=== PATIENT | female | born 1965 | race African-American/Black ===

== ENCOUNTER 2017-01-24 18:45 | Emergency (ER) | payer MEDICAID ==
[~2017-01-24 18:45] MED LIST: IBUP-232 PO
[2017-01-24 18:49] VITALS: BP 183/119; PULSE 80; RESP 20; TEMP 98.8; O2SAT 98
== END 2017-01-24 19:32 | disposition left against medical advice (07) ==
LOC: NED 18:45
DX: M25.569 Pain in unspecified knee (principal); Z53.21 Procedure and treatment not carried out due to patient leaving prior to being seen by health care provider
CPT/HCPCS: 99281

== ENCOUNTER 2017-08-09 07:20 | Emergency (ER) | payer OTHER, MEDICAID ==
[~2017-08-09] VITALS: Ht 177.8 cm; Wt 100.0 kg
[2017-08-09 07:22] VITALS: BP 167/112; PULSE 76; RESP 14; TEMP 99.1; O2SAT 100
[2017-08-09] MEDS ORDERED: LOSA25TA PO (07:28)
[2017-08-09] MEDS ORDERED: AMLO1TAB97 PO (07:28)
--- NOTE | 2017-08-09 08:24 | PD ---
HPI Chief Complaint: Cold / Flu Symptoms Time Seen by Provider: 07:47 Travel History International Travel<30 days: No Contact w/Intl Traveler<30days: No Traveled to known affect area: No History of Present Illness HPI 51-year-old female presents to the emergency Department with complaint of cough , nasal congestion, sore throat since yesterday. Has history of asthma and reports shortness of breath, chest tightness, wheezing. Reports stabbing chest pain with coughing only. Otherwise denies chest pain while at rest. Then using albuterol nebulizer with good relief of symptoms. Denies fever, vomiting , diarrhea, abdominal pain. has similar symptoms. Has taken cough drops, drinking tea, and uses nebulizer for symptom management. No known relieving or aggravating factors. Symptoms are mild in severity. No PCP. No known allergies. History of asthma. Has no medical complaints. No other modifying factors or associated signs and symptoms. PFSH Past Medical History Cardiovascular Problems: Yes (HTN) Diabetes: Yes (diet controlled) Patient Takes Glucophage: No Hypertension: Yes Influenza Vaccination: Yes ?: Not Past Surgical History Abdominal Surgery: Yes (gastric sleeve 2017) Social History Alcohol Use: No Tobacco Use: Yes Substance Use: No Allergies-Medications (Allergen,Severity, Reaction): Coded Allergies: No Known Allergies (Unverified Adverse Reaction, Unknown, 08/09/17) Reported Meds & Prescriptions Reported Meds & Active Scripts Active Deltasone (Prednisone) 20 Mg Tab 40 Mg PO DAILY 4 Days start 08/10/2017 Reported Jcptxdzpru-Lvpscfdru-Oanmthkvjqrwqthqlvv 5-160-12.5 Mg Tab 1 Tab PO DAILY Losartan (Losartan Potassium) 25 Mg Tab Unknown Dose PO DAILY Review of Systems Except as stated in HPI: all other systems reviewed are Neg Physical Exam Narrative GENERAL: Well-nourished, well-developed black female patient, in no acute distress; afebrile, nontoxic-appearing SKIN: Warm and dry. HEAD: Atraumatic. Normocephalic. EYES: Pupils equal and round. No scleral icterus. No injection or drainage. ENT: Mucosa pink and moist. No erythema or exudates. No uvular edema. No uvular , palatal, or tonsillar deviation. Airway patent. Nares without nasal blood, purulent drainage or septal hematoma. EARS: Bilateral pinnae and external canals appear within normal limits. Bilateral tympanic membranes without erythema, dullness or perforation. NECK: Trachea midline. No lymphadenopathy. CARDIOVASCULAR: Regular rate and rhythm. No murmur appreciated. RESPIRATORY: No accessory muscle use. Lungs clear throughout with decreased lung sounds in bilateral bases. Breath sounds equal bilaterally. No retractions or tachypnea. No Audible wheezing noted. GASTROINTESTINAL: Abdomen soft, non-tender, nondistended. Hepatic and splenic margins not palpable. Bowel sounds are active 4 quadrants. MUSCULOSKELETAL: No obvious deformities. No clubbing. No cyanosis. No edema. NEUROLOGICAL: Awake and alert. Oriented 3. No obvious cranial nerve deficits. Motor grossly within normal limits. Normal speech. Moves all extremities. 5/5 strength to all extremities. PSYCHIATRIC: Appropriate mood and affect; insight and judgment normal. Data Data Last Documented VS Vital Signs Date Time Temp Pulse Resp B/P (MAP) Pulse Ox O2 Delivery O2 Flow Rate FiO2 08/09/17 07:22 99.1 76 14 167/112 (130) 100 Orders Orders Group A Rapid Strep Screen (08/09/17 07:48) Influenzae A/B Antigen (08/09/17 07:48) Strep Culture (Group A) (08/09/17 07:51) Prednisone (Deltasone) (08/09/17 08:30) Albuterol-Ipratropium Neb (Duoneb Neb) (08/09/17 08:30) Ed Discharge Order (08/09/17 08:53) [facility] Medical Decision Making Medical Screen Exam Complete: Yes Emergency Medical Condition: Yes Medical Record Reviewed: Yes Differential Diagnosis Viral illness, asthma exacerbation, strep pharyngitis, influenza Narrative Course 51-year-old female with cold/flu symptoms and asthma exacerbation. Patient is in no acute distress without retractions or tachypnea. Lungs are clear with decreased lung sounds in bilateral bases. She is afebrile and nontoxic- appearing. Denies fever, vomiting. Influenza, rapid strep, Deltasone, DuoNeb ordered. 0820: Influenza and rapid strep negative. Patient has been is positive for influenza A and I will provide the patient with a prescription for Tamiflu. On reexamination the patient reports improvement in symptoms and denies chest pain , shortness of breath. Lungs are clear and equal throughout with improved lung sounds in bilateral bases. Patient has albuterol nebulizers at home. Deltasone and Tamiflu prescribed for home. Instructed patient to follow up with primary care provider. Patient verbalizes understanding and agreement with treatment plan. Patient is medically cleared and stable for discharge. Discussed reasons to return to the emergency department. Patient agrees with treatment plan. The patients vital signs are stable and the patient is stable for outpatient follow-up and treatment. Patient discharged home, stable and in no acute distress. Diagnosis Primary Impression: Viral illness Additional Impressions: Asthma exacerbation Qualified Codes: J45.901 - Unspecified asthma with (acute) exacerbation Exposure to the flu Referrals: [facility] Primary Care Physician Patient Instructions: Cold Symptoms (ED), General Instructions, Safe Use of Cough and Cold Medicines (ED) Departure Forms: Tests/Procedures, Work Release Enter return to work date: Aug 11, 2017 Additional Instructions: Use Albuterol inhaler as prescribed Take oral steroids as prescribed and complete full course Gpbr-izj-kwjkbtd decongestants or antihistamines as directed and as needed for symptom management Your cough can last 4-6 weeks Drink plenty of fluids to prevent dehydration Use hot air humidifier to decrease cough exacerbation Turn off ceiling fans and sleep with head of bed elevated Avoid triggers such as second hand smoke, dust, known allergens Follow-up with your primary care provider Return to the emergency department immediately with worsening of symptoms Med/Other Pt SpecificInfo: Prescription(s) given Scripts Oseltamivir (Tamiflu) 75 Mg Cap 75 MG PO BID for Mgmt Viral Infection for 5 Days, #10 CAP 0 Refills Prov: Amanda OwensP 08/09/17 Prednisone (Deltasone) 20 Mg Tab 40 MG PO DAILY for 4 Days, #8 TAB 0 Refills start 08/10/2017 Prov: Amanda OwensP 08/09/17 Disposition: 01 DISCHARGE HOME Condition: Stable Amanda Owens Aug 09, 2017 08:24
[2017-08-09] MEDS ORDERED: PRED-503 PO (08:26)
[2017-08-09] MEDS ORDERED: RESP: ALBUTEROL 2.5 MG/IPRATROPIUM 0.5 MG NEB (SCH) INH ONE (08:30)
[2017-08-09] MEDS ORDERED: predniSONE 20 MG TAB PO ONE (08:30)
[2017-08-09 08:58] VITALS: BP 169/100; PULSE 70; RESP 16; TEMP 98.6; O2SAT 99
[2017-08-09] MEDS ORDERED: OSEL75 PO (08:59)
== END 2017-08-09 09:14 | disposition home or self-care (01) ==
LOC: NEPD 07:20
DX: B34.9 Viral infection, unspecified (principal); J45.901 Unspecified asthma with (acute) exacerbation; J45.909 Unspecified asthma, uncomplicated; I10 Essential (primary) hypertension; E11.9 Type 2 diabetes mellitus without complications; Z20.828 Contact with and (suspected) exposure to other viral communicable diseases; Z72.0 Tobacco use; Z79.899 Other long term (current) drug therapy
CPT/HCPCS: 87081; 87804; 87880; 94664; 99284; J7512

== ENCOUNTER → 2017-08-26 | Outpatient (CLI) | payer OTHER ==
[~2017-08-26] MED LIST changes: +AMLO1TAB97 PO; -IBUP-232 PO; +LOSA25TA PO; +OSEL75 PO; +PRED-503 PO
--- NOTE | 2017-08-27 18:27 | EKG ---
Date Performed: 08/26/2017 Time Performed: 15:37:38 PTAGE: 52 years EKG: Sinus rhythm WITH FREQUENT VENTRICULAR PREMATURE COMPLEXES LEFT ATRIAL ENLARGEMENT ABNORMAL ECG NO PREVIOUS TRACING DOCTOR: Valentin Hernandez Interpretating Date/Time 08/27/2017 18:25:13
== END ==
LOC: HCAV 14:52
DX: I49.1 Atrial premature depolarization (principal)
CPT/HCPCS: 93005

== ENCOUNTER 2017-09-17 19:25 | Emergency (ER) | payer OTHER ==
[2017-09-17 19:42] VITALS: BP 149/87; PULSE 76; RESP 18; TEMP 98.4; O2SAT 98
--- NOTE | 2017-09-17 20:45 | RADRPT ---
EXAM DATE/TIME: 09/17/2017 20:22 [facility] COMPARISON: No previous studies available for comparison. INDICATIONS : Right patella pain with swelling post fall. MEDICAL HISTORY : None. SURGICAL HISTORY : None. ENCOUNTER: Initial ACUITY: 1 day PAIN SCORE: 7/10 LOCATION: Right knee FINDINGS: The osseous structures are diffusely osteopenic. There is moderate degenerative changes in the media l lateral compartment with joint narrowing and moderate osteophyte formation. There is a large bony excrescence arising from the superior aspect of the patella. No fracture is seen. There is prominen t soft tissue swelling in the subcutaneous tissues prepatellar and infrapatellar measuring up to 2 cm . The infrapatellar fat pad is still discernible and there is no distention of the suprapatellar sof t tissues. CONCLUSION: 1. Prominent soft tissue thickening and swelling subcutaneous and superficial to the quadriceps tendo n. 2. No fracture seen. Elias Perez MD on September 17, 2017 at 20:42 Board Certified Radiologist. This report was verified electronically.
[2017-09-17] MEDS ORDERED: KETOROLAC TROMETHAMINE 60 MG/2 ML (IM) VIAL IM ONE (21:45)
[2017-09-17] MEDS ORDERED: IBUP-232 PO (21:47)
--- NOTE | 2017-09-17 21:48 | PD ---
HPI Chief Complaint: Injury Time Seen by Provider: 21:37 Travel History International Travel<30 days: No Contact w/Intl Traveler<30days: No Traveled to known affect area: No History of Present Illness HPI 52-year-old female presents to the emergency department for evaluation of right knee injury. Patient states a few hours ago, she tripped and fell carrying 2 bags of groceries, landed on her right knee. Patient denies any head injury or LOC. No neck pain or back pain. No chest pain or abdominal pain. No nausea, vomiting, diarrhea. Her pain is 10/10 to the right knee without radiation, aching. Pain is worse with ambulation, movement, palpation. Pain is alleviated with rest. Moderate severity. PFSH Past Medical History Cardiovascular Problems: Yes Diabetes: Yes (diet controlled) Patient Takes Glucophage: No Hypertension: Yes Immunizations Current: Yes Tetanus Vaccination: Unknown Influenza Vaccination: Yes ?: Unknown Past Surgical History Abdominal Surgery: Yes (gastric sleeve 2016) Social History Alcohol Use: No Tobacco Use: Yes Substance Use: No Allergies-Medications (Allergen,Severity, Reaction): Coded Allergies: No Known Allergies (Unverified Adverse Reaction, Unknown, 09/17/17) Reported Meds & Prescriptions Reported Meds & Active Scripts Active Tamiflu (Oseltamivir Phosphate) 75 Mg Cap 75 Mg PO BID 5 Days Deltasone (Prednisone) 20 Mg Tab 40 Mg PO DAILY 4 Days start 08/10/2017 Reported Raylpewkgq-Jvmbqvqng-Mmtgpbpktfrajlwhtiv 5-160-12.5 Mg Tab 1 Tab PO DAILY Losartan (Losartan Potassium) 25 Mg Tab Unknown Dose PO DAILY Review of Systems Except as stated in HPI: all other systems reviewed are Neg Physical Exam Narrative GENERAL: Well-nourished, well-developed female patient, afebrile. SKIN: Focused skin assessment warm/dry. Patient has swelling and ecchymosis noted right anterior knee. Tissues are soft. HEAD: Normocephalic. Atraumatic. EYES: No scleral icterus. No injection or drainage. NECK: Supple, trachea midline. No JVD or lymphadenopathy. CARDIOVASCULAR: Regular rate and rhythm without murmurs, gallops, or rubs. Right pedal pulse 2+. RESPIRATORY: Breath sounds equal bilaterally. No accessory muscle use. Lungs sounds clear to auscultation. GASTROINTESTINAL: Abdomen soft, non-tender, nondistended. MUSCULOSKELETAL: No cyanosis, or edema. Patient has tenderness to palpation over diffuse anterior right knee. She has reduced flexion due to pain. Patient has full sensation to the distal right lower extremity. BACK: Nontender without obvious deformity. No CVA tenderness. Data Data Last Documented VS Vital Signs Date Time Temp Pulse Resp B/P (MAP) Pulse Ox O2 Delivery O2 Flow Rate FiO2 09/17/17 19:42 98.4 76 18 149/87 (107) 98 Orders Orders Knee, Complete (4vws) (09/17/17 ) Ketorolac Inj (Toradol Inj) (09/17/17 21:45) Splint Or Brace Apply/Monitor (09/17/17 21:44) [facility] Medical Decision Making Medical Screen Exam Complete: Yes Emergency Medical Condition: Yes Medical Record Reviewed: Yes Differential Diagnosis Fracture versus dislocation versus contusion versus sprain Narrative Course 52-year-old female presents to the emergency department for evaluation right knee injury. X-ray of the right knee shows Prominent soft tissue thickening and swelling subcutaneous and superficial to the quadriceps tendon; No fracture seen. Patient sees Dr. Garcia, orthopedist. She is instructed to follow-up with him. She is provided Mickey bandage and crutches. Patient is given Toradol 60 mg IM injection. Patient will be discharged with a prescription for ibuprofen for pain. The patient was discharged in stable condition with instructions, including return instructions and follow up instructions. Diagnosis Primary Impression: Contusion of right knee Qualified Codes: S80.01XA - Contusion of right knee, initial encounter Referrals: Marianela Garcia MD call for appointment Patient Instructions: General Instructions, Knee Pain (ED) Departure Forms: Tests/Procedures, Work Release Enter return to work date: Sep 20, 2017 Additional Instructions: Take ibuprofen as instructed as needed with food for pain. Ice for 20 minutes on, 20 minutes off. Wear Mickey bandage and use crutches as needed for support. Follow-up with your orthopedist, Dr. Garcia. Return to the emergency department for any acute worsening of symptoms. Med/Other Pt SpecificInfo: Prescription(s) given Scripts Ibuprofen (Ibuprofen) 600 Mg Tab 600 MG PO TID Y for PAIN SCALE 1 TO 10, #21 TAB 0 Refills Prov: Particia Manzo CHARLY 09/17/17 Disposition: 01 DISCHARGE HOME Condition: Stable Patricia Manzo Sep 17, 2017 21:48
== END 2017-09-17 22:11 | disposition home or self-care (01) ==
LOC: NEPK 19:25
DX: S80.01XA Contusion of right knee, initial encounter (principal); I10 Essential (primary) hypertension; W01.0XXA Fall on same level from slipping, tripping and stumbling without subsequent striking against object, initial encounter; Y93.89 Activity, other specified; Z72.0 Tobacco use
CPT/HCPCS: 73564; 96372; 99283; E0113; J1885

== ENCOUNTER 2017-09-22 11:09 | Inpatient (IN) | payer OTHER, MEDICARE ==
[~2017-09-22] VITALS: Ht 177.8 cm; Wt 105.4 kg
[~2017-09-22 11:09] MED LIST changes: +IBUP-232 PO
[2017-09-22 11:14] VITALS: BP 131/78; PULSE 81; RESP 16; TEMP 97.9; O2SAT 97
[2017-09-22] MEDS ORDERED: TOPI50TA7 PO (11:23)
[2017-09-22] MEDS ORDERED: OMEP40CA2 PO (11:23)
[2017-09-22] MEDS ORDERED: AMLO10TA2 PO (11:25)
[2017-09-22] MEDS ORDERED: KETOROLAC TROMETHAMINE 60 MG/2 ML (IM) VIAL IM ONE (11:30)
--- NOTE | 2017-09-22 11:39 | PD ---
HPI Chief Complaint: Musculoskeletal Complaint Time Seen by Provider: 11:14 Travel History International Travel<30 days: No Contact w/Intl Traveler<30days: No Traveled to known affect area: No History of Present Illness HPI 52-year-old female presents emergency department with complaints of right ankle pain, left knee pain, and right knee pain status post 2 falls. Patient states she tripped over her bed in her new apartment after moving here from [place] recently, and injured her right knee, which was previously evaluated here at the hospital on . The patient then fell again Saturday on the street due to tripping over a curb she expected to be shorter. At that time she injured her left knee, and right ankle. Patient is now having difficulty ambulating secondary to her pain. She has pain and swelling to both knees as well as the right ankle. There are no open wounds or abrasions. She denies any other injury. She did not hit her head or have loss of consciousness. She denies neck pain or injury to the upper extremities chest or abdomen. Pain is 8 out of 10, and she is unable to ambulate secondary to pain. She denies any numbness , tingling, or loss of function. She has no hip or back pain. She has no known drug allergies. PFSH Past Medical History Cardiovascular Problems: Yes Diabetes: Yes (diet controlled) Patient Takes Glucophage: No Hypertension: Yes Immunizations Current: Yes ?: Not Past Surgical History Abdominal Surgery: Yes (gastric sleeve 2017) Social History Alcohol Use: No Tobacco Use: Yes Substance Use: No Allergies-Medications (Allergen,Severity, Reaction): Coded Allergies: No Known Allergies (Unverified Adverse Reaction, Unknown, 09/22/17) Reported Meds & Prescriptions Reported Meds & Active Scripts Active Ibuprofen 600 Mg Tab 600 Mg PO TID PRN Reported Amlodipine (Amlodipine Besylate) 10 Mg Tab 10 Mg PO DAILY Omeprazole 40 Mg Cap 40 Mg PO DAILY Topiramate 50 Mg Tab 50 Mg PO DAILY Losartan (Losartan Potassium) 25 Mg Tab 25 Mg PO DAILY Review of Systems Except as stated in HPI: all other systems reviewed are Neg General / Constitutional: No: Fever Eyes: No: Visual changes HENT: No: Headaches Cardiovascular: No: Chest Pain or Discomfort Respiratory: No: Shortness of Breath Gastrointestinal: No: Abdominal Pain Genitourinary: No: Dysuria Musculoskeletal: Positive: Arthralgias, Limited ROM, Pain (See history of present illness per) Skin: No Rash Neurologic: No: Weakness Psychiatric: No: Depression Endocrine: No: Polydipsia Hematologic/Lymphatic: No: Easy Bruising Physical Exam Narrative GENERAL: This is a pleasantly animated female in mild distress. She is brought in by ambulance due to her inability to ambulate. SKIN: Warm and dry. Normal color. Normal turgor. HEAD: Atraumatic. Normocephalic. Nontender EYES: Pupils equal and round. No scleral icterus. No injection or drainage. ENT: No nasal bleeding or discharge. Mucous membranes pink and moist. NECK: Trachea midline. No JVD. CARDIOVASCULAR: Regular rate and rhythm. RESPIRATORY: No accessory muscle use. Clear to auscultation. Breath sounds equal bilaterally. GASTROINTESTINAL: Abdomen soft, non-tender, nondistended. Hepatic and splenic margins not palpable. MUSCULOSKELETAL: Extremities without clubbing, cyanosis, or edema. No obvious deformities. Patient has swelling over the right ankle with mild tenderness with palpation without point tenderness or crepitus. Range of motion is intact but somewhat limited secondary to pain. Right knee has large prepatellar effusion, but no obvious laxity. Left knee shows mild to moderate effusion generally with generalized tenderness mainly in the anterior patellar region. No laxity is appreciated. Exam is limited secondary to pain. NEUROLOGICAL: Awake and alert. No obvious cranial nerve deficits. Motor grossly within normal limits. Five out of 5 muscle strength in the arms and legs. Normal speech. PSYCHIATRIC: Appropriate mood and affect; insight and judgment normal. Data Data Last Documented VS Vital Signs Date Time Temp Pulse Resp B/P (MAP) Pulse Ox O2 Delivery O2 Flow Rate FiO2 09/22/17 12:32 99 09/22/17 11:14 97.9 81 16 131/78 (95) Orders Orders Ketorolac Inj (Toradol Inj) (09/22/17 11:30) Ankle, Complete (Iyt4wym) (09/22/17 11:20) Knee, Complete (4vws) (09/22/17 11:20) Ice/Cold Pack (09/22/17 11:20) Splinting (09/22/17 ) Complete Blood Count With Diff (09/22/17 12:25) Comprehensive Metabolic Panel (09/22/17 12:25) Prothrombin Time / Inr (Pt) (09/22/17 12:25) Act Partial Throm Time (Ptt) (09/22/17 12:25) Iv Access Insert/Monitor (09/22/17 12:25) Ecg Monitoring (09/22/17 12:25) Oximetry (09/22/17 12:25) NPO (09/22/17 12:25) Morphine Inj (Morphine Inj) (09/22/17 12:30) Ondansetron Inj (Zofran Inj) (09/22/17 12:30) Sodium Chloride 0.9% Flush (Ns Flush) (09/22/17 12:30) Electrocardiogram (09/22/17 12:25) Chest, Single Ap (09/22/17 ) Consult Orthopedic (09/22/17 ) Splinting (09/22/17 ) MDM Medical Decision Making Medical Screen Exam Complete: Yes Emergency Medical Condition: Yes Medical Record Reviewed: Yes Differential Diagnosis Trip and fall. Right ankle sprain. Left knee sprain. Left knee contusion. Possible fracture. Narrative Course Patient is medically stable at time of exam. X-rays of the right ankle and left knee are ordered. Patient is given Toradol 60 mg IM. Knee x-ray shows: 1. Comminuted depressed fracture lateral tibial plateau 2. Lateral displacement of the patella. 3. Large joint effusion 4. Significant 3 compartment arthropathy. Right ankle x-ray shows: Sliver of avulsion fracture of the distal tip of the fibula with associated soft tissue swelling. Otherwise intact ankle. Patient is made n.p.o. Labs ordered including CBC, CMP, coagulation studies. Chest x-ray and EKG is ordered. Carrillo splint is ordered for the right ankle. Splint is ordered for the left knee with ice cuff. Call placed to Dr. Luis, the orthopedic on-call. Patient was discussed with Dr. Luis who recommends admitting the patient with n.p.o. after midnight. Calls placed to the hospitalist for admission. Diagnosis Primary Impression: Tibial plateau fracture, left Qualified Codes: S82.142A - Displaced bicondylar fracture of left tibia, initial encounter for closed fracture Additional Impression: Closed fracture of right distal fibula Qualified Codes: S82.831A - Other fracture of upper and lower end of right fibula, initial encounter for closed fracture Admitting Information Admitting Physician Requests: Observation Condition: Stable Jonnie Robles Sep 22, 2017 11:39
--- NOTE | 2017-09-22 12:04 | RADRPT ---
EXAM DATE/TIME: 09/22/2017 11:41 [facility] COMPARISON: No previous studies available for comparison. INDICATIONS : Right ankle pain post fall. MEDICAL HISTORY : None. SURGICAL HISTORY : None. ENCOUNTER: Initial ACUITY: 3 days PAIN SCORE: 5/10 LOCATION: Right ankle. FINDINGS: A sliver of motion fracture is identified off the distal tip of the right fibula. There is significan t generalized soft tissue swelling of the ankle. The ankle mortise is intact. CONCLUSION: Sliver of avulsion fracture of the distal tip of the fibula with associated soft tissue swelling. Otherwise intact ankle. Nitin Jackson MD on September 22, 2017 at 12:01 Board Certified Radiologist. This report was verified electronically.
--- NOTE | 2017-09-22 12:06 | RADRPT ---
EXAM DATE/TIME: 09/22/2017 11:43 [facility] COMPARISON: KNEE RIGHT COMPLETE (4VWS), September 17, 2017, 20:22. INDICATIONS : Left knee pain post fall. MEDICAL HISTORY : None. SURGICAL HISTORY : None. ENCOUNTER: Initial ACUITY: 3 days PAIN SCORE: 8/10 LOCATION: Left knee. FINDINGS: Four view examination of the left knee demonstrates a comminuted depressed fracture of the lateral ti bial plateau. Significant lateral tilting and displacement of the patella is noted. Large joint effusion is identified. Moderate to advanced arthropathy is noted of the joint compartments with joint space narrowing and ma rginal spurring. CONCLUSION: 1. Comminuted depressed fracture lateral tibial plateau 2. Lateral displacement of the patella. 3. Large joint effusion 4. Significant 3 compartment arthropathy. Nitin Jackson MD on September 22, 2017 at 12:02 Board Certified Radiologist. This report was verified electronically.
[2017-09-22] MEDS ORDERED: ONDANSETRON HCL 4 MG/2 ML VIAL IVP ONE (12:30)
[2017-09-22] MEDS ORDERED: MORPHINE SULFATE 4 MG/ML INJ IV PUSH ONE (12:30)
[2017-09-22] MEDS ORDERED: SODIUM CHLORIDE 0.9% FLUSH 10 ML FLUSH IV FLUSH PRN ×2 (12:30→13:45)
[2017-09-22 12:32] VITALS: O2SAT 99
--- NOTE | 2017-09-22 13:06 | RADRPT ---
EXAM DATE/TIME: 09/22/2017 12:49 [facility] COMPARISON: No previous studies available for comparison. INDICATIONS : Preoperative chest X-Ray. MEDICAL HISTORY : Hypertension. Diabetes. SURGICAL HISTORY : Gastric sleeve. ENCOUNTER: Initial ACUITY: 1 day PAIN SCORE: 0/10 LOCATION: Bilateral chest FINDINGS: A rounded density is seen along the medial margin of the left hemidiaphragm in the retrocardiac regio n. Lungs are otherwise well-expanded and clear. Heart is normal in size. Old left rib fractures are noted. CONCLUSION: 1. Left basilar rounded opacity which may represent a hiatal hernia. 2. Lungs are otherwise clear. 3. Old left-sided rib fractures. Nitin Jackson MD on September 22, 2017 at 13:03 Board Certified Radiologist. This report was verified electronically.
[2017-09-22 13:09] LABS: AUTOMATED NEUTROPHIL # 6.4 TH/MM3 (1.8-7.7); BASOPHIL % 0.5 % (0.0-2.0); EOSINOPHIL # 0.1 TH/MM3 (0-0.4); EOSINOPHIL % 1.4 % (0.0-4.0); HEMATOCRIT 39.3 % (35.0-46.0); HEMOGLOBIN 12.9 GM/DL (11.6-15.3); LYMPH % 24.6 % (9.0-44.0); LYMPHOCYTE # 2.4 TH/MM3 (1.0-4.8); MEAN CELL VOLUME 94.2 FL (80.0-100.0); MEAN CORPUSCULAR HGB CONC 32.9 % (32.0-36.0); MEAN PLATELET VOLUME 9.5 FL (7.0-11.0); MONO % 6.7 % (0.0-8.0); MONOCYTE # 0.6 TH/MM3 (0-0.9); NEUT % 66.8 % (16.0-70.0); PLATELET COUNT 200 TH/MM3 (150-450); RED BLOOD COUNT 4.17 MIL/MM3 (4.00-5.30); WHITE BLOOD COUNT 9.5 TH/MM3 (4.0-11.0)
[2017-09-22 13:17] LABS: INTERNATIONAL NORMALIZED RATIO 0.9 RATIO; PROTHROMBIN TIME - PATIENT 9.4 SEC (9.8-11.6)
[2017-09-22 13:29] LABS: ALBUMIN 3.4 GM/DL (3.4-5.0); ALT (GPT) 17 U/L (10-53); AST (GOT) 18 U/L (15-37); BLOOD UREA NITROGEN 18 MG/DL (7-18); CALCIUM 8.5 MG/DL (8.5-10.1); CHLORIDE 115 MEQ/L (98-107); GLOMERULAR FILTRATION RATE 57 ML/MIN (>89); GLUCOSE,RANDOM 76 MG/DL (74-106); SODIUM (NA) 146 MEQ/L (136-145)
[2017-09-22 13:31] LABS: ALKALINE PHOSPHATASE 87 U/L (45-117); TOTAL BILIRUBIN ADULT 0.2 MG/DL (0.2-1.0); TOTAL PROTEIN 7.6 GM/DL (6.4-8.2)
[2017-09-22] MEDS ORDERED: HYDROmorphone HCL PF 1 MG/ML VIAL IV PUSH PRN ×2 (13:45)
[2017-09-22] MEDS ORDERED: ACETAMINOPHEN 325 MG TAB PO PRN (13:45)
[2017-09-22] MEDS ORDERED: MAGNESIUM HYDROXIDE SUSP 30 ML CUP PO PRN (13:45)
[2017-09-22] MEDS ORDERED: SENNOSIDES 8.6 MG TAB PO PRN (13:45)
[2017-09-22] MEDS ORDERED: NALOXONE HCL 0.4 MG/ML AMP IV PUSH PRN (13:45)
[2017-09-22] MEDS ORDERED: ONDANSETRON HCL 4 MG/2 ML VIAL IVP PRN (13:45)
[2017-09-22] MEDS ORDERED: LACTULOSE SYRUP 20 GM/30 ML CUP PO PRN (13:45)
[2017-09-22] MEDS ORDERED: BISACODYL 10 MG SUPP RECTAL PRN (13:45)
[2017-09-22 13:49] VITALS: BP 141/94; PULSE 79; RESP 18; O2SAT 98
--- NOTE | 2017-09-22 14:46 | HHI.HP ---
[facility]Staff Admission Diagnosis Tibial Plateau Fracture Diagnoses: (1) Diet-controlled diabetes mellitus (2) Tobacco abuse (3) Tibial plateau fracture, left (4) Hypertension Chief Complaint: Fall, leg pain Travel History International Travel<30 Days: No Contact w/Intl Traveler <30 Da: No Traveled to Known Affected Are: No History of Present Illness Patient is a 52-year-old female who presented to the emergency department complaining of right knee pain, left knee pain, and right ankle pain. She states that a few days ago she tripped over the bed of her new apartment and injured her right knee. She presented to the hospital for evaluation of that injury on . She fell again on Saturday, stating that she was walking off the sidewalk onto the street and did not realize how high the curb was. She injured her left knee and right ankle at that time. She has had worsening pain over the past 2 days. She is having difficulty ambulating. She denies hitting her head. No loss of consciousness. No near syncope, dizziness, lightheadedness. No chest pain or dyspnea. Review of Systems Constitutional: DENIES: Fever, Chills, Night Sweats Eyes: DENIES: Blurred vision, Vision loss Ears, nose, mouth, throat: DENIES: Hearing loss Respiratory: DENIES: Cough, Wheezing, Sputum production, Shortness of breath Cardiovascular: DENIES: Chest pain, Palpitations, Dyspnea on Exertion, Lower Extremity Edema Gastrointestinal: DENIES: Abdominal pain, Constipation, Diarrhea, Nausea, Vomiting Genitourinary: DENIES: Urinary frequency, Urinary incontinence, Urgency, Hematuria, Dysuria, Nocturia Musculoskeletal: COMPLAINS OF: Joint pain, DENIES: Muscle aches Integumentary: DENIES: Pruritus, Rash Hematologic/lymphatic: DENIES: Bruising Neurologic: DENIES: Headache Past Family Social History Past Medical History Diet-controlled diabetes mellitus Hypertension Past Surgical History Gastric sleeve 2016 Reported Medications Amlodipine (Amlodipine Besylate) 10 Mg Tab 10 Mg PO DAILY Omeprazole 40 Mg Cap 40 Mg PO DAILY Topiramate 50 Mg Tab 50 Mg PO DAILY Losartan (Losartan Potassium) 25 Mg Tab 25 Mg PO DAILY Allergies: Coded Allergies: No Known Allergies (Unverified Adverse Reaction, Unknown, 09/22/17) Family History Diabetes mellitus Father had prostate cancer Social History Smokes cigarettes intermittently. Rare alcohol use. Denies illicit drug use. Physical Exam Vital Signs Vital Signs Date Time Temp Pulse Resp B/P (MAP) Pulse Ox O2 Delivery O2 Flow Rate FiO2 09/22/17 13:49 79 18 141/94 (110) 98 09/22/17 12:32 99 09/22/17 11:14 97.9 81 16 131/78 (95) 97 Physical Exam GENERAL: Well-nourished, well-developed female in no acute distress. HEENT: Normocephalic, atraumatic. Pupils equal, round and reactive. Extraocular movements intact. No scleral icterus. No injection or drainage. Oropharynx is clear. Mucous membranes are moist. CARDIOVASCULAR: Regular rate and rhythm without murmurs, gallops, or rubs. RESPIRATORY: Clear to auscultation. No wheezes, rales, or rhonchi. Breathing is non-labored. GASTROINTESTINAL: Abdomen soft, non-tender, nondistended. EXTREMITIES: Left knee in an immobilizer splint. Right ankle splinted. There is ecchymosis around the right knee. PSYCH: Alert and oriented x 3. Laboratory Laboratory Tests Test 09/22/17 12:40 White Blood Count 9.5 Red Blood Count 4.17 Hemoglobin 12.9 Hematocrit 39.3 Mean Corpuscular Volume 94.2 Mean Corpuscular Hemoglobin 31.0 Mean Corpuscular Hemoglobin Concent 32.9 Red Cell Distribution Width 15.0 Platelet Count 200 Mean Platelet Volume 9.5 Neutrophils (%) (Auto) 66.8 Lymphocytes (%) (Auto) 24.6 Monocytes (%) (Auto) 6.7 Eosinophils (%) (Auto) 1.4 Basophils (%) (Auto) 0.5 Neutrophils # (Auto) 6.4 Lymphocytes # (Auto) 2.4 Monocytes # (Auto) 0.6 Eosinophils # (Auto) 0.1 Basophils # (Auto) 0.0 CBC Comment DIFF FINAL Differential Comment Prothrombin Time 9.4 Prothromb Time International Ratio 0.9 Activated Partial Thromboplast Time 23.1 Blood Urea Nitrogen 18 Creatinine 1.20 Random Glucose 76 Total Protein 7.6 Albumin 3.4 Calcium Level 8.5 Alkaline Phosphatase 87 Aspartate Amino Transf (AST/SGOT) 18 Alanine Aminotransferase (ALT/SGPT) 17 Total Bilirubin 0.2 Sodium Level 146 Potassium Level 3.7 Chloride Level 115 Carbon Dioxide Level 24.0 Anion Gap 7 Estimat Glomerular Filtration Rate 57 Result Diagram: 09/22/17 1240 09/22/17 1240 Imaging Last Impressions Knee X-Ray 09/22/17 1120 Signed Impressions: Service Date/Time: Friday, September 22, 2017 11:43 - CONCLUSION: 1. Comminuted depressed fracture lateral tibial plateau 2. Lateral displacement of the patella. 3. Large joint effusion 4. Significant 3 compartment arthropathy. Nitin Jackson MD Ankle X-Ray 09/22/17 1120 Signed Impressions: Service Date/Time: Friday, September 22, 2017 11:41 - CONCLUSION: Sliver of avulsion fracture of the distal tip of the fibula with associated soft tissue swelling. Otherwise intact ankle. Nitin Jackson MD Chest X-Ray 09/22/17 0000 Signed Impressions: Service Date/Time: Friday, September 22, 2017 12:49 - CONCLUSION: 1. Left basilar rounded opacity which may represent a hiatal hernia. 2. Lungs are otherwise clear. 3. Old left-sided rib fractures. MD Rosalee Ugaldei VTE Risk Assessment Caprini VTE Risk Assessment: No/Low Risk (score <= 1) Caprini Risk Assessment Model Point Value = 1 Point Value = 2 Point Value = 3 Point Value = 5 Age 41-60 Minor surgery BMI > 25 kg/m2 Swollen legs Varicose veins or History of unexplained or recurrent spontaneous Oral contraceptives or hormone replacement Sepsis (< 1 month) Serious lung disease, including pneumonia (< 1 month) Abnormal pulmonary function Acute myocardial infarction Congestive heart failure (< 1 month) History of inflammatory bowel disease Medical patient at bed rest Age 61-74 Arthroscopic surgery Major open surgery (> 45 min) Laparoscopic surgery (> 45 min) Malignancy Confined to bed (> 72 hours) Immobilizing plaster cast Central venous access Age >= 75 History of VTE Family history of VTE Factor V Leiden Prothrombin [id number] Lupus anticoagulant Anticardiolipin antibodies Elevated serum homocysteine Heparin-induced thrombocytopenia Other congenital or acquired thrombophilia Stroke (< 1 month) Elective arthroplasty Hip, pelvis, or leg fracture Acute spinal cord injury (< 1 month) Prophylaxis Regimen Total Risk Factor Score Risk Level Prophylaxis Regimen 0-1 Low Early ambulation 2 Moderate Order ONE of the following: *Sequential Compression Device (SCD) *Heparin 5000 units SQ BID 3-4 Higher Order ONE of the following medications: *Heparin 5000 units SQ TID *Enoxaparin/Lovenox 40 mg SQ daily (WT < 150 kg, CrCl > 30 mL/min) *Enoxaparin/Lovenox 30 mg SQ daily (WT < 150 kg, CrCl > 10-29 mL/min) *Enoxaparin/Lovenox 30 mg SQ BID (WT < 150 kg, CrCl > 30 mL/min) AND/OR *Sequential Compression Device (SCD) 5 or more Highest Order ONE of the following medications: *Heparin 5000 units SQ TID (Preferred with Epidurals) *Enoxaparin/Lovenox 40 mg SQ daily (WT < 150 kg, CrCl > 30 mL/min) *Enoxaparin/Lovenox 30 mg SQ daily (WT < 150 kg, CrCl > 10-29 mL/min) *Enoxaparin/Lovenox 30 mg SQ BID (WT < 150 kg, CrCl > 30 mL/min) AND *Sequential Compression Device (SCD) Assessment and Plan Assessment and Plan 1. Left tibial plateau fracture with lateral displacement of the patella: Orthopedic surgery was contacted by the emergency department. The plan is for surgery tomorrow. Continue pain control. 2. Right fibula avulsion fracture: Right lower extremity splinted. Continue pain control. 3. Hypertension: Continue home medications. 4. Diet-controlled diabetes: Monitor blood sugars. 5. DVT prophylaxis: Cannot use lower extremity SCDs secondary to splints. Will need chemical prophylaxis following surgery. Problem Qualifiers (1) Tibial plateau fracture, left: Qualified Codes: S82.142A - Displaced bicondylar fracture of left tibia, initial encounter for closed fracture Axel Michelle MD Sep 22, 2017 14:46
[2017-09-22 15:37] VITALS: BP 161/100; PULSE 88; RESP 18; TEMP 98.6; O2SAT 97
[2017-09-22] MEDS: HYDROmorphone HCL PF 2 MG/ML VIAL IV PUSH PRN ×2 (15:57→20:40)
[2017-09-22] MEDS ORDERED: HYDROmorphone HCL PF 2 MG/ML VIAL IV PUSH PRN (16:00)
[2017-09-22] MEDS: SODIUM CHLORIDE 0.9% FLUSH 10 ML FLUSH IV FLUSH SCH (20:40)
[2017-09-22] MEDS: DOCUSATE SODIUM 50 MG/SENNA 8.6 MG TAB PO SCH (20:40)
[2017-09-22 21:41] VITALS: BP 137/65; PULSE 82; RESP 18; TEMP 98; O2SAT 95
[2017-09-22 23:56] VITALS: BP 151/105; PULSE 74; RESP 18; TEMP 98; O2SAT 100
[2017-09-23] MEDS: HYDROmorphone HCL PF 2 MG/ML VIAL IV PUSH PRN ×6 (00:31→23:58)
[2017-09-23 04:13] VITALS: BP 157/97; PULSE 77; RESP 18; TEMP 98; O2SAT 99
[2017-09-23 08:19] VITALS: BP 155/93; PULSE 78; RESP 16; TEMP 98.2; O2SAT 98
--- NOTE | 2017-09-23 09:28 | RADRPT ---
EXAM DATE/TIME: 09/23/2017 09:01 [facility] COMPARISON: KNEE LEFT COMPLETE (4VWS), September 22, 2017, 11:43. INDICATIONS : Left knee pain. RADIATION DOSE: 7.37 CTDIvol (mGy) MEDICAL HISTORY : Hypertension. SURGICAL HISTORY : None. ENCOUNTER: Initial ACUITY: 1 day PAIN SCALE: 4/10 LOCATION: Left knee TECHNIQUE: Volumetric scanning of the knee was performed. Using automated exposure control and adjustment of th e mA and/or kV according to patient size, radiation dose was kept as low as reasonably achievable to obtain optimal diagnostic quality images. DICOM format image data is available electronically for re view and comparison. FINDINGS: Corresponding to the findings on recent plain radiographs, there are moderate degenerative changes of the involving the patellofemoral joint, tibial spines and medial tibiofemoral compartment. There is a comminuted and depressed fracture of the lateral tibial plateau, and a lipohemarthrosis. There is a pproximate 1.3 cm of depression of the proximal tibia lateral tibial plateau. No other fractures are seen. CONCLUSION: Proximal tibial fracture. Moderate osteoarthritis. Gaurang Roman MD on September 23, 2017 at 9:25 Board Certified Radiologist. This report was verified electronically.
[2017-09-23] MEDS: SODIUM CHLORIDE 0.9% FLUSH 10 ML FLUSH IV FLUSH SCH ×2 (09:36→19:56)
[2017-09-23] MEDS: DOCUSATE SODIUM 50 MG/SENNA 8.6 MG TAB PO SCH (09:36)
[2017-09-23] MEDS: TOPIRAMATE 25 MG TAB PO SCH (09:37)
[2017-09-23] MEDS: LOSARTAN 25 MG TAB PO SCH (09:37)
--- NOTE | 2017-09-23 10:17 | HHI.PR ---
Subjective Remarks Pt seen and examined this morning. Reports soreness but states pain is controlled with the medications. Denies CP, SOB, abdominal pain, N/V, dizziness , or lightheadedness. Surgery anticipated for later this afternoon/evening so patient is going to eat breakfast this morning. She is concerned about her home situation because her and her spouse just moved into a new house and they have no bed or furniture. They are going to talk to their certified registered locksmith. Objective Vital Signs Date Time Temp Pulse Resp B/P (MAP) Pulse Ox O2 Delivery O2 Flow Rate FiO2 09/23/17 08:19 98.2 78 16 155/93 (113) 98 09/23/17 04:13 98.0 77 18 157/97 (117) 99 09/22/17 23:56 98.0 74 18 151/105 (120) 100 09/22/17 21:41 98.0 82 18 137/65 (89) 95 09/22/17 15:37 98.6 88 18 161/100 (120) 97 09/22/17 14:52 09/22/17 13:49 79 18 141/94 (110) 98 09/22/17 12:32 99 09/22/17 11:14 97.9 81 16 131/78 (95) 97 Result Diagram: 09/22/17 1240 09/22/17 [address] 09/23/17 0000 Signed Impressions: Service Date/Time: Saturday, September 23, 2017 09:01 - CONCLUSION: Proximal tibial fracture. Moderate osteoarthritis. Gaurang Roman MD Knee X-Ray 09/22/17 1120 Signed Impressions: Service Date/Time: Friday, September 22, 2017 11:43 - CONCLUSION: 1. Comminuted depressed fracture lateral tibial plateau 2. Lateral displacement of the patella. 3. Large joint effusion 4. Significant 3 compartment arthropathy. Nitin Jackson MD Ankle X-Ray 09/22/17 1120 Signed Impressions: Service Date/Time: Friday, September 22, 2017 11:41 - CONCLUSION: Sliver of avulsion fracture of the distal tip of the fibula with associated soft tissue swelling. Otherwise intact ankle. Nitin Jackson MD Chest X-Ray 09/22/17 0000 Signed Impressions: Service Date/Time: Friday, September 22, 2017 12:49 - CONCLUSION: 1. Left basilar rounded opacity which may represent a hiatal hernia. 2. Lungs are otherwise clear. 3. Old left-sided rib fractures. Nitin Jackson MD Objective Remarks GENERAL: Pleasant WN, WD AA female laying comfortably in bed in NAD. HEENT: AT NC. Pupils equal and round. MMM. CARDIOVASCULAR: RRR no m/r/g. RESPIRATORY: CTAB w/o wheezes or crackles. GASTROINTESTINAL: Abdomen soft, NT, ND. EXTREMITIES: Left knee in an immobilizer splint. Right LE casted. NEURO: Awake and alert. Nonfocal. A/P Problem List: (1) Tibial plateau fracture, left ICD Code: S82.142A - Displaced bicondylar fracture of left tibia, initial encounter for closed fracture Status: Acute (2) Closed fracture of right distal fibula ICD Code: S82.831A - Other fracture of upper and lower end of right fibula, initial encounter for closed fracture Status: Acute (3) Hypertension ICD Code: I10 - Essential (primary) hypertension Status: Chronic (4) Diet-controlled diabetes mellitus ICD Code: E11.9 - Type 2 diabetes mellitus without complications Status: Chronic Assessment and Plan 52 YOWF with HTN admitted for L tibial plateau fracture and R fibula avulsion fracture after a mechanical fall. 1. Left tibial plateau fracture with lateral displacement of the patella - Orthopedic surgery consulted and planning for ORIF today - Pain control - PT 2. Right fibula avulsion fracture - Right lower extremity casted - Pain control 3. Hypertension - BPs elevated but may be secondary to pain - Continue home Losartan and amlodipine - Clonidine PRN 4. Diet-controlled DM - Monitor blood sugars 5. DVT prophylaxis - Holding chemical anticoagulation in light of surgery Discharge Planning Anticipate D/C tomorrow when post-op. Case management consulted to assist with D /C needs Problem Qualifiers (1) Tibial plateau fracture, left: Qualified Codes: S82.142A - Displaced bicondylar fracture of left tibia, initial encounter for closed fracture (2) Closed fracture of right distal fibula: Qualified Codes: S82.831A - Other fracture of upper and lower end of right fibula, initial encounter for closed fracture Alejandrina Bauer MD Sep 23, 2017 10:17
[2017-09-23] MEDS ORDERED: cloNIDine HCL 0.1 MG TAB PO PRN (10:30)
--- NOTE | 2017-09-23 10:35 | PD.ORT.PN ---
Subjective Subjective Remarks Mechanical fall from curb with significant pain to left knee and right ankle No other complaints Objective Vitals Vital Signs Date Time Temp Pulse Resp B/P (MAP) Pulse Ox O2 Delivery O2 Flow Rate FiO2 09/23/17 08:19 98.2 78 16 155/93 (113) 98 09/23/17 04:13 98.0 77 18 157/97 (117) 99 09/22/17 23:56 98.0 74 18 151/105 (120) 100 09/22/17 21:41 98.0 82 18 137/65 (89) 95 09/22/17 15:37 98.6 88 18 161/100 (120) 97 09/22/17 14:52 09/22/17 13:49 79 18 141/94 (110) 98 09/22/17 12:32 99 09/22/17 11:14 97.9 81 16 131/78 (95) 97 Result Diagram: 09/22/17 1240 09/22/17 1240 Other Results Laboratory Tests Test 09/22/17 12:40 Prothromb Time International Ratio 0.9 RATIO Prothrombin Time 9.4 SEC (9.8-11.6) Imaging Last 24 hours Impressions Lower Extrem[address] CT 09/23/17 0000 Signed Impressions: Service Date/Time: Saturday, September 23, 2017 09:01 - CONCLUSION: Proximal tibial fracture. Moderate osteoarthritis. Gaurang Roman MD Knee X-Ray 09/22/17 1120 Signed Impressions: Service Date/Time: Friday, September 22, 2017 11:43 - CONCLUSION: 1. Comminuted depressed fracture lateral tibial plateau 2. Lateral displacement of the patella. 3. Large joint effusion 4. Significant 3 compartment arthropathy. Nitin Jackson MD Ankle X-Ray 09/22/17 1120 Signed Impressions: Service Date/Time: Friday, September 22, 2017 11:41 - CONCLUSION: Sliver of avulsion fracture of the distal tip of the fibula with associated soft tissue swelling. Otherwise intact ankle. Nitin Jackson MD Objective Remarks Bilateral upper extremities full range of motion and neurovascularly intact with no pain Right lower extremity: No pain with hip or knee range of motion. Splint intact over ankle. Distally intact sensation with active movement of toes. Left lower extremity: No significant pain with range of motion of hip. She has tenderness over lateral plateau. Intact sensation distally with good capillary refills with active dorsal flexion plantar flexion of foot Assessment & Plan Assessment and Plan Left tibia plateau fracture with depression Nothing by mouth after breakfast Sign consents We'll plan on open reduction internal fixation of left tibia plateau this evening after clinic around 5:30. Right distal fibula avulsion fracture We will remove splint in the OR and will either go back into a splint or fracture boot at that point Jeffy Pearce Jr. Sep 23, 2017 10:35
[2017-09-23] MEDS ORDERED: WHEEMIS3 (11:04)
[2017-09-23] MEDS ORDERED: HOSP BED1 (11:04)
[2017-09-23] MEDS ORDERED: BEDSIDE COMMODE1 MI1 (11:04)
--- NOTE | 2017-09-23 11:05 | HHI.FF ---
Face to Face Verification Diagnosis: (1) Closed fracture of right distal fibula (2) Tibial plateau fracture, left Physical Therapy Order: Evaluate and Treat, Improve ambulation, Strength and gait training Home Health Nursing Order: Wound care and dressing changes Nursing assessment with vital signs I have seen patient Nora Kilgore on 09/23/17. My clinical findings support the need for the requested home health care services because: Deconditioned w/ increased weakness Limited ability to care for self High risk of falls I certify that my clinical findings support that this patient is homebound because: Unsteady gait/balance [id number] bed/chair Alejandrina Bauer MD Sep 23, 2017 11:05
[2017-09-23 11:27] VITALS: BP 135/94; PULSE 83; RESP 18; TEMP 98.7; O2SAT 99
[2017-09-23] MEDS ORDERED: LACTATED RINGER'S 1000 ML INJ 1,000 ML IV ONE (12:00)
[2017-09-23] MEDS ORDERED: PROPOFOL 200 MG/20 ML AMP IV ONE (12:00)
[2017-09-23] MEDS ORDERED: PHENYLEPH/NS 1000 MCG/10 ML SYR IV ONE (12:00)
[2017-09-23] MEDS ORDERED: LIDOCAINE HCL 1% PF 5 ML SYRINGE OTHER ONE (12:00)
[2017-09-23] MEDS ORDERED: ePHEDrine/NS 25 MG/5 ML SYRINGE IV ONE (12:00)
[2017-09-23] MEDS ORDERED: ROCURONIUM INJ 50 MG/5 ML SYRINGE IV PUSH ONE (12:00)
[2017-09-23 12:48] LABS: BICARBONATE 23.8 MEQ/L (21.0-32.0); CALCIUM 8.8 MG/DL (8.5-10.1); CREATININE 1.17 MG/DL (0.50-1.00)
[2017-09-23] MEDS: PANTOPRAZOLE SOD 40 MG DELAYED RELEASE TAB PO SCH (14:03)
[2017-09-23 15:20] VITALS: BP 159/82; PULSE 87; RESP 18; TEMP 97.7; O2SAT 96
[2017-09-23] MEDS ORDERED: VANCOMYCIN HCL 1000 MG VIAL ONE (15:50)
[2017-09-23] MEDS ORDERED: ceFAZolin 2 GM PREMIX 50 ML ONE (15:51)
[2017-09-23] MEDS ORDERED: GENTAMICIN SULFATE 80 MG/2 ML VIAL ONE (15:51)
[2017-09-23] MEDS ORDERED: MIDAZOLAM HCL 2 MG/2 ML VIAL ONE (19:02)
--- NOTE | 2017-09-23 19:02 | EKG ---
Date Performed: 09/22/2017 Time Performed: 13:09:36 PTAGE: 52 years EKG: Sinus rhythm POSSIBLE LEFT ATRIAL ENLARGEMENT Compared to previous tracing, the frequent PVCs have resolved. Trac ing remains consistent with possible Left ventricular hypertrophy. Clincal correlation will be import ant BORDERLINE ECG PREVIOUS TRACING : 08/26/2017 15.37 DOCTOR: Viry Good Interpretating Date/Time 09/23/2017 19:02:48
[2017-09-23] MEDS ORDERED: diphenhydrAMINE HCL 25 MG CAP PO PRN (19:15)
[2017-09-23] MEDS ORDERED: MISCELLANEOUS NURSING INFORMATION XX PRN (19:15)
[2017-09-23] MEDS ORDERED: Post-op Orders (for Pharmacy) XX ONE (19:15)
--- NOTE | 2017-09-23 19:16 | PD.OP ---
cc: Gamaliel Herndon MD Operative Report Date of Surgery: Sep 23, 2017 Preoperative Diagnosis: Minimally displaced right distal fibula fracture, comminuted intra-articular displaced left lateral tibial plateau fracture Postoperative Diagnosis: Procedure: Open repair of left lateral meniscus tear, open reduction total fixation comminuted lateral tibial plateau fracture Anesthesia: Gen. Surgeon: Gamaliel Herndon Accountant Budget(s): Alonzo Pearce PA-C The surgical procedure was assisted by my physician assistant tennis coach. My P.A. presence was necessary throughout this case for the manipulation and positioning of the surgical extremity. My P.A. was assisting me throughout the duration of this procedure. The skill set of a physician assistant tennis coach was medically necessary to complete this procedure. During the surgical case the manager surgical was working at the back table and the physician assistant tennis coach was directly assisting me. Operation and Findings: Implants used: Biomet Plan of activity: Nonweightbearing 3 months, passive knee range of motion This patient was seen and evaluated preoperatively. Patient sustained an injury resulting a comminuted left tibial plateau fracture. Informed consent was obtained preoperatively after detailed discussion of the risks and benefits of surgery. Risk of surgery including bleeding, infection, nonunion, painful hardware, stiffness, loss of motion, arthritis, need for knee replacement, as well as medical complications including blood clots, stroke, heart attack, and were discussed. I also discussed the possibility of using allograft bone graft . Preoperatively the operative site was marked. Patient was brought to the operating room and placed on the operating room table. Intravenous sedation and general endotracheal anesthesia were administered. IV antibiotics were given and a time out procedure was preformed. The operative leg was prepped with alcohol followed by Hibiclens and draped in the usual sterile fashion. Procedure began with a 4-inch curvilinear incision over the anterolateral knee. Subcutaneous tissue was treated with Bovie. Iliotibial band was split in line with fibers. A sub-meniscal arthrotomy was created and the lateral articular surface was visualized. At this point it was noted that patient had a large bucket handle type lateral meniscus tear. Attention was turned towards repair of this tear. The meniscus was reduced. #1 Vicryl sutures were used for repair. 3 vertical mattress sutures were placed. The meniscus reduced into appropriate alignment. The meniscus appeared to be stable at this time. Next attention was turned towards open reduction internal fixation of tibial plateau. There was significant comminution and depression of the articular surface. Patient had very poor bone quality secondary to osteoporosis. There were multiple small osteochondral fragments. A large cortical fragment was hinged open to allow for visualization of the articular surface. Bone tamps used to elevate the articular surface. The articular surface was in multiple small fragments. Fracture fragments were manipulated to achieve optimal reduction. K-wires were used for provisional fixation. At this point cancellous bone graft was packed under the articular surface using a bone tamp. The cortical fragments were now reduced. Fluoroscopy revealed reasonable alignment of fracture. Anatomic reduction was not achievable secondary to the severe comminution and poor bone quality. A Biomet proximal tibial plate was selected. The plate was provisionally held with K-wires. 3.5 cortical screws were used compress plate to bone distally, and a periarticular clamp was used to compress the medial and lateral tibial plateau fracture fragments together. Multiple locking screws were now placed proximally. Additional screws were placed in the shaft. K-wires were removed. Final fluoroscopy showed excellent alignment of fracture with well-placed hardware. The incision was thoroughly irrigated. Arthrotomy and iliotibial band closed with #1 Vicryl,. Subcutaneous tissues closed with 3-0 Vicryl and skin was closed with melvin. Sterile dressings were applied. The patient was transferred to recovery in stable condition. Gamaliel Herndon MD Sep 23, 2017 19:15
--- NOTE | 2017-09-23 19:23 | RADRPT ---
EXAM DATE/TIME: 09/23/2017 18:46 [facility] COMPARISON: CT KNEE LEFT W/O CONTRAST, September 23, 2017, 9:01. KNEE LEFT COMPLETE (4VWS), September 22, 2017, 11:43. INDICATIONS : Left tibial plateau fracture repair. OR. MEDICAL HISTORY : Hypertension. SURGICAL HISTORY : None. ENCOUNTER: Initial ACUITY: 1 day PAIN SCORE: Non-responsive. LOCATION: Left proximal tibia FINDINGS: Patient is status post open reduction internal fixation of comminuted lateral tibial plateau fracture . Fixation consists of a lateral plate and multiple screws. Alignment is near-anatomic. No acute comp lication is demonstrated. CONCLUSION: Expected radiographic appearance after screw and plate fixation of lateral tibial plateau fracture. Kendrick Fountain MD on September 23, 2017 at 19:20 Board Certified Radiologist. This report was verified electronically.
[2017-09-23] MEDS ORDERED: DO NOT ADM ANY ANTICOAGULANT DRUGS PRN (19:26)
[2017-09-23] MEDS ORDERED: *morphine SULFATE 4 MG/ML PERIprocedure ONLY ONE (19:30)
[2017-09-23] MEDS ORDERED: *MEPERIDINE 25 MG INJ VIAL PERIprocedural Use ONLY ONE (19:40)
[2017-09-23] MEDS ORDERED: *morphine SULFATE 10 MG/ML PERIprocedure ONLY ONE ×2 (19:40→19:58)
[2017-09-23] MEDS ORDERED: ERGOCALCIFEROL (VIT D2) 50,000 UNIT CAP PO SCH (20:00)
[2017-09-23] MEDS: LACTATED RINGER'S 1000 ML INJ 1,000 ML IV SCH (20:00)
[2017-09-23 20:57] VITALS: BP 121/84; PULSE 80; RESP 18; TEMP 96.8; O2SAT 98
[2017-09-24] VITALS (7 sets, daily range): BP systolic 108–142; BP diastolic 68–86; PULSE 73–110; RESP 16–18; TEMP 95.6–98.4; O2SAT 96–100
[2017-09-24] MEDS: ceFAZolin 2 GM PREMIX 50 ML IV SCH ×3 (02:33→18:06)
[2017-09-24] MEDS: DOCUSATE SODIUM 50 MG/SENNA 8.6 MG TAB PO SCH ×3 (02:35→21:00)
[2017-09-24] MEDS: ACETAMINOPHEN/HYDROcodone 325 MG/10 MG TAB PO PRN ×5 (02:48→18:05)
[2017-09-24] MEDS: HYDROmorphone HCL PF 2 MG/ML VIAL IV PUSH PRN ×4 (04:24→20:34)
[2017-09-24] MEDS: VANCOMYCIN INJ 1,000 MG in SODIUM CHLOR 0.9% 250 ML INJ 250 ML IV SCH ×2 (06:13→18:06)
[2017-09-24] MEDS: LACTATED RINGER'S 1000 ML INJ 1,000 ML IV SCH ×2 (06:13→21:00)
[2017-09-24 06:51] LABS: HEMATOCRIT 32.9 % (35.0-46.0); MEAN CELL VOLUME 95.2 FL (80.0-100.0); MEAN CORPUSCULAR HEMOGLOBIN 31.9 PG (27.0-34.0); MEAN CORPUSCULAR HGB CONC 33.5 % (32.0-36.0); MEAN PLATELET VOLUME 9.3 FL (7.0-11.0); PLATELET COUNT 175 TH/MM3 (150-450); RED BLOOD COUNT 3.45 MIL/MM3 (4.00-5.30); RED CELL DISTRIBUTION WIDTH 15.1 % (11.6-17.2); WHITE BLOOD COUNT 9.7 TH/MM3 (4.0-11.0)
--- NOTE | 2017-09-24 07:09 | PD.ORT.PN ---
Subjective Subjective Remarks Resting comfortably with pain controlled Objective Vitals Vital Signs Date Time Temp Pulse Resp B/P (MAP) Pulse Ox O2 Delivery O2 Flow Rate FiO2 09/24/17 04:46 96 21 09/24/17 04:45 97.2 78 18 139/74 (95) 98 09/24/17 00:02 96.9 77 18 137/82 (100) 100 09/23/17 20:57 96.8 80 18 121/84 (96) 98 09/23/17 20:30 77 14 125/79 (94) 100 Nasal Cannula 2 09/23/17 20:15 98.0 78 12 120/78 (92) 100 Nasal Cannula 2 09/23/17 20:00 75 12 126/77 (93) 100 Nasal Cannula 2 09/23/17 19:45 73 16 127/76 (93) 100 Nasal Cannula 3 09/23/17 19:30 71 15 120/70 (87) 100 Nasal Cannula 3 09/23/17 19:23 98.5 72 18 110/68 (82) 100 Nasal Cannula 3 09/23/17 15:20 97.7 87 18 159/82 (107) 96 09/23/17 11:27 98.7 83 18 135/94 (108) 99 09/23/17 08:19 98.2 78 16 155/93 (113) 98 I/O 09/23/17 09/23/17 09/23/17 09/24/17 09/24/17 09/24/17 07:00 15:00 23:00 07:00 15:00 23:00 Intake Total 1910 ml 480 ml Output Total 200 ml Balance 1710 ml 480 ml Intake Oral 360 ml 480 ml IV Total 500 ml Other 1050 ml Output Urine Total 0 ml Estimated Blood Loss 200 ml # Voids 0 1 # Bowel Movements 0 0 Result Diagram: 09/24/17 0507 09/23/17 1205 Imaging Last 24 hours Impressions Lower Extremity CT 09/23/17 0000 Signed Impressions: Service Date/Time: Saturday, September 23, 2017 09:01 - CONCLUSION: Proximal tibial fracture. Moderate osteoarthritis. Gaurang Roman MD Knee X-Ray 09/22/17 1120 Signed Impressions: Service Date/Time: Friday, September 22, 2017 11:43 - CONCLUSION: 1. Comminuted depressed fracture lateral tibial plateau 2. Lateral displacement of the patella. 3. Large joint effusion 4. Significant 3 compartment arthropathy. Nitin Jackson MD Ankle X-Ray 09/22/17 1120 Signed Impressions: Service Date/Time: Friday, September 22, 2017 11:41 - CONCLUSION: Sliver of avulsion fracture of the distal tip of the fibula with associated soft tissue swelling. Otherwise intact ankle. Nitin Jackson MD Objective Remarks Bilateral upper extremities full range of motion and neurovascularly intact with no pain Right lower extremity: No pain with hip or knee range of motion. Both lateral and medial ankle pain. Ankle is stable. Intact sensation throughout the foot Left lower extremity: No significant pain with range of motion of hip. Clean dry dressings with knee immobilizer in place. Distally intact sensation with good capillary refills of active dorsiflexion plantar flexion of foot Assessment & Plan Assessment and Plan Left tibia plateau fracture ORIF POD 1 Strict nonweightbearing left lower extremity with no active leglifts or quad sets PT passive range of motion from 0-90 Daily dressing changes beginning POD 2 Right distal fibula avulsion fracture Weightbearing as tolerated right lower extremity in fracture boot Incentive spirometry [facility] planning to rehabilitation. Unsafe to go home Follow-up appointment with Dr. Herndon or PA in 2 weeks Jeffy Pearce Jr. Sep 24, 2017 07:09
[2017-09-24] MEDS: LOSARTAN 25 MG TAB PO SCH (08:36)
[2017-09-24] MEDS: CHOLECALCIFEROL (VIT D3) 1000 UNIT TAB PO SCH (08:36)
[2017-09-24] MEDS: PANTOPRAZOLE SOD 40 MG DELAYED RELEASE TAB PO SCH (08:36)
[2017-09-24] MEDS: CALCIUM/VITAMIN D 250 MG/125 U TAB PO SCH ×3 (08:36→18:06)
[2017-09-24] MEDS: TOPIRAMATE 25 MG TAB PO SCH (08:36)
[2017-09-24] MEDS: SODIUM CHLORIDE 0.9% FLUSH 10 ML FLUSH IV FLUSH SCH ×2 (09:00→21:00)
--- NOTE | 2017-09-24 09:25 | HHI.PR ---
Subjective Remarks Follow up for left tibial plateau fracture, right fibula fracture, hypertension. The patient reports her pain is fairly well controlled. She has been using bedside commode. She has not yet attempted ambulation with right leg fracture boot. She agrees to rehab placement. She adamantly states she doesn't have diabetes and has never been diagnosed with this. She denies any specific medical complaints including no chest pain, shortness of breath, abdominal pain , nausea/vomiting, or diarrhea. Her last BM was Wednesday 09/20. She is tolerating oral intake. Objective Vitals Vital Signs Date Time Temp Pulse Resp B/P (MAP) Pulse Ox O2 Delivery O2 Flow Rate FiO2 09/24/17 08:00 97.8 85 18 140/84 (102) 99 09/24/17 04:46 96 21 09/24/17 04:45 97.2 78 18 139/74 (95) 98 09/24/17 00:02 96.9 77 18 137/82 (100) 100 09/23/17 20:57 96.8 80 18 121/84 (96) 98 09/23/17 20:30 77 14 125/79 (94) 100 Nasal Cannula 2 09/23/17 20:15 98.0 78 12 120/78 (92) 100 Nasal Cannula 2 09/23/17 20:00 75 12 126/77 (93) 100 Nasal Cannula 2 09/23/17 19:45 73 16 127/76 (93) 100 Nasal Cannula 3 09/23/17 19:30 71 15 120/70 (87) 100 Nasal Cannula 3 09/23/17 19:23 98.5 72 18 110/68 (82) 100 Nasal Cannula 3 09/23/17 15:20 97.7 87 18 159/82 (107) 96 09/23/17 11:27 98.7 83 18 135/94 (108) 99 I/O 09/23/17 09/23/17 09/23/17 09/24/17 09/24/17 09/24/17 07:00 15:00 23:00 07:00 15:00 23:00 Intake Total 1910 ml 480 ml Output Total 200 ml Balance 1710 ml 480 ml Intake Oral 360 ml 480 ml IV Total 500 ml Other 1050 ml Output Urine Total 0 ml Estimated Blood Loss 200 ml # Voids 0 1 # Bowel Movements 0 0 Result Diagram: 09/24/17 0507 09/23/17 1205 Imaging Last Impressions Lower Extremity CT 09/23/17 0000 Signed Impressions: Service Date/Time: Saturday, September 23, 2017 09:01 - CONCLUSION: Proximal tibial fracture. Moderate osteoarthritis. Gaurang Roman MD Knee X-Ray 09/23/17 0000 Signed Impressions: Service Date/Time: Saturday, September 23, 2017 18:46 - CONCLUSION: Expected radiographic appearance after screw and plate fixation of lateral tibial plateau fracture. Kendrick Fountain MD Ankle X-Ray 09/22/17 1120 Signed Impressions: Service Date/Time: Friday, September 22, 2017 11:41 - CONCLUSION: Sliver of avulsion fracture of the distal tip of the fibula with associated soft tissue swelling. Otherwise intact ankle. Nitin Jackson MD Chest X-Ray 09/22/17 0000 Signed Impressions: Service Date/Time: Friday, September 22, 2017 12:49 - CONCLUSION: 1. Left basilar rounded opacity which may represent a hiatal hernia. 2. Lungs are otherwise clear. 3. Old left-sided rib fractures. Nitin Jackson MD Objective Remarks GENERAL: Well-nourished, well-developed middle aged female patient in [facility]. SKIN: Warm and dry. No rash. HEENT: Normocephalic. Atraumatic. Pupils equal and round. Mucous membranes pink and moist. CARDIOVASCULAR: Regular rate and rhythm. S1, S2 noted. No murmur appreciated. RESPIRATORY: No accessory muscle use. Clear to auscultation. Breath sounds equal bilaterally. GASTROINTESTINAL: Abdomen soft, non-tender, nondistended. Normoactive bowel sounds x4. MUSCULOSKELETAL: No obvious deformities. LLE with knee immobilizer in place. Right ankle edematous. Bilateral pedal pulses 2+. NEUROLOGICAL: Awake and alert. No obvious cranial nerve deficits. Motor grossly within normal limits. Moving all extremities spontaneously. Normal speech. PSYCHIATRIC: Appropriate mood and affect; insight and judgment normal. Procedures 09/23/17 - Left tibial plateau fracture ORIF Medications and IVs Current Medications Medications (Trade) Dose Ordered Sig/Gladis Route Start Time Stop Time Status Last Admin (NS Flush) 2 ml UNSCH PRN IV FLUSH 09/22/17 13:45 (NS Flush) 2 ml BID IV FLUSH 09/22/17 21:00 09/23/17 19:56 (Tylenol) 650 mg Q4H PRN PO 09/22/17 13:45 (Zofran Inj) 4 mg Q6H PRN IVP 09/22/17 13:45 09/22/17 20:39 (Narcan Inj) 0.4 mg UNSCH PRN IV PUSH 09/22/17 13:45 (Deb-Colace) 1 tab BID PO 09/22/17 21:00 09/24/17 08:36 (Milk Of Magnesia Liq) 30 ml Q12H PRN PO 09/22/17 13:45 (Senokot) 17.2 mg Q12H PRN PO 09/22/17 13:45 (Dulcolax Supp) 10 mg DAILY PRN RECTAL 09/22/17 13:45 (Lactulose Liq) 30 ml DAILY PRN PO 09/22/17 13:45 (Norvasc) 10 mg DAILY PO 09/23/17 09:00 09/24/17 08:36 (Cozaar) 25 mg DAILY PO 09/23/17 09:00 09/24/17 08:36 (Topamax) 50 mg DAILY PO 09/23/17 09:00 09/24/17 08:36 (Protonix) 40 mg DAILY PO 09/23/17 09:00 09/24/17 08:36 (Dilaudid Pf Inj) 0.5 mg Q4H PRN IV PUSH 09/22/17 16:00 09/24/17 08:45 (Dilaudid Pf Inj) 0.2 mg Q4HR PRN IV PUSH 09/22/17 16:00 (Catapres) 0.1 mg Q6H PRN PO 09/23/17 10:30 Lactated Ringer's 1,000 ml @ 80 mls/hr [id number] IV 09/23/17 20:00 09/24/17 06:13 (Lovenox Inj) 30 mg Q24H SQ 09/24/17 18:30 Cefazolin Sodium/ Dextrose 50 ml @ 100 mls/hr Q8H IV 09/24/17 02:00 09/25/17 18:29 09/24/17 08:36 Vancomycin HCl 1000 mg/Sodium Chloride 250 ml @ 250 mls/hr Q12H IV 09/24/17 06:00 09/25/17 06:59 09/24/17 06:13 Miscellaneous Information UNSCH PRN XX 09/23/17 19:15 ([place] 10-325 Mg) 1 tab Q3H PRN PO 09/23/17 19:15 09/24/17 06:17 (Oscal-D 250-125) 250 mg TID PO 09/24/17 09:00 09/24/17 08:36 (Benadryl) 25 mg Q6H PRN PO 09/23/17 19:15 09/23/17 21:07 (Vitamin D3) 1,000 units DAILY PO 09/24/17 09:00 09/24/17 08:36 (Drisdol) 50,000 units Q7D PO 09/23/17 20:00 09/24/17 02:35 Miscellaneous Information ALL NURSING DEPARTME... UNSCH PRN .XX 09/23/17 19:26 09/24/17 19:25 A/P Problem List: (1) Diet-controlled diabetes mellitus ICD Code: E11.9 - Type 2 diabetes mellitus without complications Status: Chronic (2) Tobacco abuse ICD Code: Z72.0 - Tobacco use (3) Tibial plateau fracture, left ICD Code: S82.142A - Displaced bicondylar fracture of left tibia, initial encounter for closed fracture Status: Acute (4) Hypertension ICD Code: I10 - Essential (primary) hypertension Status: Chronic Assessment and Plan 52-year-old female with hx of HTN admitted for L tibial plateau fracture and R fibula avulsion fracture after a mechanical fall. Left tibial plateau fracture with lateral displacement of the patella -Orthopedic surgery consulted, s/p ORIF on 09/23 -Strict NWB with no active leglifts or quad sets per ortho -Pain control -Consulted PT Right fibula avulsion fracture -Right lower extremity fracture boot ordered, WBAT per ortho -Pain control Hypertension -BPs elevated but may be secondary to pain -Continue home Losartan and amlodipine -Clonidine PRN Diet-controlled DM - Monitor blood sugars Constipation: patient reports no BM since Wednesday 09/20 -increase deb-colace to 2 tabs po bid -constipation protocol meds prn DVT prophylaxis- Lovenox per ortho DC planning to rehabilitation. Unsafe to go home Follow-up appointment with Dr. Herndon or CATALINO in 2 weeks Problem Qualifiers (1) Tibial plateau fracture, left: Qualified Codes: S82.142A - Displaced bicondylar fracture of left tibia, initial encounter for closed fracture Camelia Somers PA-C Sep 24, 2017 9:25 am
[2017-09-24] MEDS ORDERED: HYDR-3583 PO (09:34)
[2017-09-24] MEDS ORDERED: CALCTAB19 PO (09:34)
[2017-09-24] MEDS ORDERED: XARE10TA PO (09:34)
[2017-09-24] MEDS ORDERED: VITA500012 PO (09:34)
--- NOTE | 2017-09-24 09:58 | MB ---
cc: Gamaliel Carrillo MD DATE OF CONSULT: 09/23/2017 REASON FOR CONSULTATION: Comminuted left lateral tibial plateau fracture. REQUESTING PHYSICIAN: Dr. Mane HISTORY OF PRESENT ILLNESS: Nora is a 52-year-old female who presented to the emergency room. She states that she was crossing the street. She stepped awkwardly off a high curb. She landed awkwardly on her left leg. She had immediate left leg pain and deformity. She also twisted her right ankle. She presented to the emergency room, where x-rays revealed a comminuted, depressed left tibial plateau fracture. She was also found to have a minimally displaced right fibula fracture. She is currently awake and alert in the emergency department. She complains of left knee pain and right ankle pain. She recently moved to the [facility] from [place]. PAST MEDICAL HISTORY: Only lists diabetes and hypertension. PAST SURGICAL HISTORY: Gastric sleeve. MEDICATIONS: Include amlodipine, omeprazole, losartan. ALLERGIES: NO KNOWN DRUG ALLERGIES. FAMILY HISTORY: Positive for diabetes and prostate cancer in her father. SOCIAL HISTORY: The patient denies drug use. She drinks occasional alcohol. She does smoke a few cigarettes a day. REVIEW OF SYSTEMS: The patient denies headache, visual changes, neck pain, chest pain, shortness of breath, abdominal pain, nausea, vomiting or recent weight loss, fevers or chills, numbness or tingling of extremities. She complains of left knee pain and right ankle pain. Pain is worse with movement. LABORATORY DATA: The patient has a white blood cell count of 9.5, hemoglobin 12.9 and hematocrit of 39.3. INR 0.9. BUN 23 and creatinine is 1.17. PHYSICAL EXAMINATION: GENERAL: The patient is a pleasant 52-year-old female. She is awake and alert. She appears well developed, well nourished. She is moderately overweight. VITAL SIGNS: Temperature 97.7, pulse 87, respirations 18, blood pressure 159/82, O2 saturation is 96% on room air. HEAD: The patient is normocephalic. EYES: Pupils are equal. NECK: Soft, nontender. Trachea is midline. ABDOMEN: Soft, nontender, nondistended. EXTREMITIES: Examination of bilateral upper extremities reveals no significant pain with shoulder, elbow, wrist motion. She has intact sensation to all fingers. She has good capillary refill to all fingers. Skin is intact. Radial pulses are palpable. Examination of the right leg reveals no pain with hip or any motion. She has mild swelling of her ankle. She is tender to palpation of the distal fibula. Skin is intact. She has good capillary refill in her foot. Sensation is intact in her right foot. Examination of the left leg reveals no tenderness around her hip or ankle. She is diffusely tender around the knee. There is mild swelling around the knee. She has pain with any knee motion. Skin is intact. Calf and thigh compartments are soft. Sensation is intact in the left foot. IMAGIN. X-rays of the right ankle were reviewed. X-rays reveal a minimally displaced right distal fibula fracture. 2. X-rays and CT scan of left knee were reviewed. X-rays reveal a comminuted, depressed, intraarticular tibial plateau fracture. IMPRESSION: 1. Hypertension. 2. Diabetes. 3. Right distal fibula fracture. 4. Comminuted, displaced, intraarticular left tibial plateau fracture. 5. Probable osteoporosis. PLAN: The treatment options were discussed with the patient. At this point, I would recommend nonsurgical treatment of her right ankle. She may weight bear on her right ankle for transfers. I would recommend open reduction and internal fixation of left tibial plateau, with possible allograft bone grafting. Risk of surgery including bleeding, infection, injuries to arteries, nerves and blood vessels, nonunion, malunion, knee stiffness, knee arthritis, knee pain, need for knee replacement, compartment syndrome, as well as medical complications, including blood clots, stroke, heart attack and were discussed. I will plan on surgery today. The patient will need calcium and vitamin D supplementation. A mid-level provider in my office, nurse practitioner or PA, may see this patient on a follow-up basis and continue to implement the objective of this plan including: Starting or adjusting medications, injections of muscle, tendon, bursa or joints, cast application, orthotic or brace application, physical therapy, further radiographic studies including x-ray, MRI, CT, ultrasounds or bone scan, vascular studies, neurologic studies, or other specialist consultations, and proceeding with surgical management as appropriate. MD JAYDA Santana/TONY , 07:09 PM , 11:48 PM
[2017-09-24] MEDS: ENOXAPARIN SODIUM 30 MG/0.3 ML SYRINGE SQ SCH (18:06)
[2017-09-25] VITALS: BP 134/80; PULSE 82; RESP 18; TEMP 97.9; O2SAT 98
[2017-09-25] MEDS: ACETAMINOPHEN/HYDROcodone 325 MG/10 MG TAB PO PRN ×6 (01:52→18:58)
[2017-09-25] MEDS: ceFAZolin 2 GM PREMIX 50 ML IV SCH ×3 (01:53→18:58)
[2017-09-25] MEDS: VANCOMYCIN INJ 1,000 MG in SODIUM CHLOR 0.9% 250 ML INJ 250 ML IV SCH (06:26)
--- NOTE | 2017-09-25 07:00 | PD.ORT.PN ---
Subjective Subjective Remarks Resting comfortably with pain controlled Objective Vitals Vital Signs Date Time Temp Pulse Resp B/P (MAP) Pulse Ox O2 Delivery O2 Flow Rate FiO2 09/25/17 00:00 97.9 82 18 134/80 (98) 98 09/24/17 20:00 97.9 80 18 138/86 (103) 99 09/24/17 16:00 98.4 74 18 131/76 (94) 100 09/24/17 11:50 98.2 73 18 142/78 (99) 100 09/24/17 08:00 97.8 85 18 140/84 (102) 99 I/O 09/24/17 09/24/17 09/24/17 09/25/17 09/25/17 09/25/17 07:00 15:00 23:00 07:00 15:00 23:00 Intake Total 480 ml 720 ml 480 ml 480 ml Balance 480 ml 720 ml 480 ml 480 ml Intake Oral 480 ml 720 ml 480 ml 480 ml # Voids 1 3 2 1 # Bowel Movements 0 0 0 0 Result Diagram: 09/24/17 0507 09/23/17 1205 Imaging Last 24 hours Impressions Lower Extremity CT 09/23/17 0000 Signed Impressions: Service Date/Time: Saturday, September 23, 2017 09:01 - CONCLUSION: Proximal tibial fracture. Moderate osteoarthritis. Gaurang Roman MD Knee X-Ray 09/22/17 1120 Signed Impressions: Service Date/Time: Friday, September 22, 2017 11:43 - CONCLUSION: 1. Comminuted depressed fracture lateral tibial plateau 2. Lateral displacement of the patella. 3. Large joint effusion 4. Significant 3 compartment arthropathy. Nitin Jackson MD Ankle X-Ray 09/22/17 1120 Signed Impressions: Service Date/Time: Friday, September 22, 2017 11:41 - CONCLUSION: Sliver of avulsion fracture of the distal tip of the fibula with associated soft tissue swelling. Otherwise intact ankle. Nitin Jackson MD Objective Remarks Bilateral upper extremities full range of motion and neurovascularly intact with no pain Right lower extremity: No pain with hip or knee range of motion. Both lateral and medial ankle pain. Ankle is stable. Intact sensation throughout the foot Left lower extremity: No significant pain with range of motion of hip. Clean dry dressings with knee immobilizer in place. Distally intact sensation with good capillary refills of active dorsiflexion plantar flexion of foot Assessment & Plan Assessment and Plan Left tibia plateau fracture ORIF POD 2 Strict nonweightbearing left lower extremity with no active leglifts or quad sets PT passive range of motion from 0-90 Daily dressing changes beginning POD 2 Right distal fibula avulsion fracture Weightbearing as tolerated right lower extremity in fracture boot Incentive spirometry [facility] planning to rehabilitation. Unsafe to go home. Orthopedically cleared Follow-up appointment with Dr. Herndon or PA in 2 weeks Jeffy Pearce Jr. Sep 25, 2017 07:00
[2017-09-25 07:30] VITALS: BP 146/94; PULSE 81; RESP 18; TEMP 97.4; O2SAT 100
--- NOTE | 2017-09-25 08:34 | HHI.PR ---
Subjective Remarks Follow up for left tibial plateau fracture, right fibula fracture, hypertension , constipation. The patient received milk of mag and lactulose overnight, now finally had a BM this morning, described as a large amount of hard nonbloody stool. Denies any abdominal pain/nausea/vomiting. She has questions about rehab. After long discussion, patient agrees to going to rehab and wants to discuss options. She has no other medical complaints including no lightheadedness, dizziness, chest pain, palpitations, shortness of breath, or abdominal complaints. She is tolerating oral intake. Her pain is fairly well- controlled. Objective Vitals Vital Signs Date Time Temp Pulse Resp B/P (MAP) Pulse Ox O2 Delivery O2 Flow Rate FiO2 09/25/17 07:30 97.4 81 18 146/94 (111) 100 09/25/17 00:00 97.9 82 18 134/80 (98) 98 09/24/17 20:00 97.9 80 18 138/86 (103) 99 09/24/17 16:00 98.4 74 18 131/76 (94) 100 09/24/17 11:50 98.2 73 18 142/78 (99) 100 I/O 09/24/17 09/24/17 09/24/17 09/25/17 09/25/17 09/25/17 07:00 15:00 23:00 07:00 15:00 23:00 Intake Total 480 ml 720 ml 480 ml 480 ml Balance 480 ml 720 ml 480 ml 480 ml Intake Oral 480 ml 720 ml 480 ml 480 ml # Voids 1 3 2 1 # Bowel Movements 0 0 0 0 Result Diagram: 09/24/17 0507 09/23/17 1205 Imaging Last Impressions Lower Extremity CT 09/23/17 0000 Signed Impressions: Service Date/Time: Saturday, September 23, 2017 09:01 - CONCLUSION: Proximal tibial fracture. Moderate osteoarthritis. Gaurang Roman MD Knee X-Ray 09/23/17 0000 Signed Impressions: Service Date/Time: Saturday, September 23, 2017 18:46 - CONCLUSION: Expected radiographic appearance after screw and plate fixation of lateral tibial plateau fracture. Kendrick Fountain MD Ankle X-Ray 09/22/17 1120 Signed Impressions: Service Date/Time: Friday, September 22, 2017 11:41 - CONCLUSION: Sliver of avulsion fracture of the distal tip of the fibula with associated soft tissue swelling. Otherwise intact ankle. Nitin Jackson MD Chest X-Ray 09/22/17 0000 Signed Impressions: Service Date/Time: Friday, September 22, 2017 12:49 - CONCLUSION: 1. Left basilar rounded opacity which may represent a hiatal hernia. 2. Lungs are otherwise clear. 3. Old left-sided rib fractures. Nitin Jackson MD Objective Remarks GENERAL: Well-nourished, well-developed middle aged female patient in [place]. SKIN: Warm and dry. No rash. HEENT: Normocephalic. Atraumatic. Pupils equal and round. Mucous membranes pink and moist. CARDIOVASCULAR: Regular rate and rhythm. S1, S2 noted. No murmur appreciated. RESPIRATORY: No accessory muscle use. Clear to auscultation. Breath sounds equal bilaterally. GASTROINTESTINAL: Abdomen soft, non-tender, nondistended. Normoactive bowel sounds x4. MUSCULOSKELETAL: No obvious deformities. LLE with knee immobilizer in place. Right ankle edematous. Bilateral pedal pulses 2+. NEUROLOGICAL: Awake and alert. No obvious cranial nerve deficits. Motor grossly within normal limits. Moving all extremities spontaneously. Normal speech. PSYCHIATRIC: Appropriate mood and affect; insight and judgment normal. Procedures 09/23/17 - Left tibial plateau fracture ORIF Medications and IVs Current Medications Medications (Trade) Dose Ordered Sig/Gladis Route Start Time Stop Time Status Last Admin (NS Flush) 2 ml UNSCH PRN IV FLUSH 09/22/17 13:45 (NS Flush) 2 ml BID IV FLUSH 09/22/17 21:00 09/24/17 09:00 (Tylenol) 650 mg Q4H PRN PO 09/22/17 13:45 (Zofran Inj) 4 mg Q6H PRN IVP 09/22/17 13:45 09/22/17 20:39 (Narcan Inj) 0.4 mg UNSCH PRN IV PUSH 09/22/17 13:45 (Milk Of Magnesia Liq) 30 ml Q12H PRN PO 09/22/17 13:45 09/25/17 06:27 (Senokot) 17.2 mg Q12H PRN PO 09/22/17 13:45 (Dulcolax Supp) 10 mg DAILY PRN RECTAL 09/22/17 13:45 (Lactulose Liq) 30 ml DAILY PRN PO 09/22/17 13:45 09/25/17 06:26 (Norvasc) 10 mg DAILY PO 09/23/17 09:00 09/24/17 08:36 (Cozaar) 25 mg DAILY PO 09/23/17 09:00 09/24/17 08:36 (Topamax) 50 mg DAILY PO 09/23/17 09:00 09/24/17 08:36 (Protonix) 40 mg DAILY PO 09/23/17 09:00 09/24/17 08:36 (Dilaudid Pf Inj) 0.5 mg Q4H PRN IV PUSH 09/22/17 16:00 09/24/17 20:34 (Dilaudid Pf Inj) 0.2 mg Q4HR PRN IV PUSH 09/22/17 16:00 (Catapres) 0.1 mg Q6H PRN PO 09/23/17 10:30 Lactated Ringer's 1,000 ml @ 80 mls/hr [id number] IV 09/23/17 20:00 09/24/17 06:13 (Lovenox Inj) 30 mg Q24H SQ 09/24/17 18:30 09/24/17 18:06 Cefazolin Sodium/ Dextrose 50 ml @ 100 mls/hr Q8H IV 09/24/17 02:00 09/25/17 18:29 09/25/17 01:53 Miscellaneous Information UNSCH PRN XX 09/23/17 19:15 ([place] 10-325 Mg) 1 tab Q3H PRN PO 09/23/17 19:15 09/25/17 06:30 (Oscal-D 250-125) 250 mg TID PO 09/24/17 09:00 09/24/17 18:06 (Benadryl) 25 mg Q6H PRN PO 09/23/17 19:15 09/23/17 21:07 (Vitamin D3) 1,000 units DAILY PO 09/24/17 09:00 09/24/17 08:36 (Drisdol) 50,000 units Q7D PO 09/23/17 20:00 09/24/17 02:35 (Deb-Colace) 2 tab BID PO 09/24/17 21:00 09/24/17 21:00 A/P Problem List: (1) Diet-controlled diabetes mellitus ICD Code: E11.9 - Type 2 diabetes mellitus without complications Status: Chronic (2) Tobacco abuse ICD Code: Z72.0 - Tobacco use (3) Tibial plateau fracture, left ICD Code: S82.142A - Displaced bicondylar fracture of left tibia, initial encounter for closed fracture Status: Acute (4) Hypertension ICD Code: I10 - Essential (primary) hypertension Status: Chronic Assessment and Plan 52-year-old female with hx of HTN admitted for L tibial plateau fracture and R fibula avulsion fracture after a mechanical fall. Left tibial plateau fracture with lateral displacement of the patella -Orthopedic surgery consulted, s/p ORIF on 09/23 -Strict NWB with no active leglifts or quad sets per ortho -Pain control -Consulted PT, recommends rehab Right fibula avulsion fracture -Right lower extremity fracture boot ordered, WBAT per ortho -Pain control Hypertension -BPs elevated but may be secondary to pain -Continue home Losartan and amlodipine -Clonidine PRN -BP much improved Diet-controlled DM - Monitor blood sugars - patient adamantly states she's never had diabetes; will check [id number] Constipation: patient reports no BM since Wednesday 09/20 -increase deb-colace to 2 tabs po bid -constipation protocol meds prn -s/p MOM and lactulose, had BM today 09/25 DVT prophylaxis- Lovenox per ortho DC planning to rehabilitation. Unsafe to go home Follow-up appointment with Dr. Herndon or CATALINO in 2 weeks Discharge Planning Ok to discharge to rehab when arrangements made by case management. Problem Qualifiers (1) Tibial plateau fracture, left: Qualified Codes: S82.142A - Displaced bicondylar fracture of left tibia, initial encounter for closed fracture Camelia Somers PA-C Sep 25, 2017 8:34 am
[2017-09-25] MEDS: LOSARTAN 25 MG TAB PO SCH (08:47)
[2017-09-25] MEDS: CHOLECALCIFEROL (VIT D3) 1000 UNIT TAB PO SCH (08:48)
[2017-09-25] MEDS: PANTOPRAZOLE SOD 40 MG DELAYED RELEASE TAB PO SCH (08:48)
[2017-09-25] MEDS: LACTATED RINGER'S 1000 ML INJ 1,000 ML IV SCH ×2 (08:48→21:01)
[2017-09-25] MEDS: CALCIUM/VITAMIN D 250 MG/125 U TAB PO SCH ×3 (08:48→18:57)
[2017-09-25] MEDS: DOCUSATE SODIUM 50 MG/SENNA 8.6 MG TAB PO SCH ×2 (08:48→21:00)
[2017-09-25] MEDS: TOPIRAMATE 25 MG TAB PO SCH (08:48)
[2017-09-25] MEDS: SODIUM CHLORIDE 0.9% FLUSH 10 ML FLUSH IV FLUSH SCH ×2 (08:52→21:00)
[2017-09-25 11:25] VITALS: BP 177/90; PULSE 82; RESP 16; TEMP 97.5; O2SAT 98
[2017-09-25 16:00] VITALS: BP 137/77; PULSE 85; RESP 18; TEMP 97.7; O2SAT 100
[2017-09-25 17:08] LABS: HEMOGLOBIN A1C 5.9 % (4.3-6.0)
[2017-09-25] MEDS: ENOXAPARIN SODIUM 30 MG/0.3 ML SYRINGE SQ SCH (18:57)
[2017-09-25 19:15] VITALS: BP 124/89; PULSE 81; RESP 18; TEMP 98.4; O2SAT 99
[2017-09-26 00:39] VITALS: BP 122/69; PULSE 77; RESP 18; TEMP 98; O2SAT 99
[2017-09-26] MEDS: ACETAMINOPHEN/HYDROcodone 325 MG/10 MG TAB PO PRN ×7 (02:30→16:05)
[2017-09-26] MEDS ORDERED: WALKER WHEELS/F1 MIS (06:31)
--- NOTE | 2017-09-26 06:37 | PD.ORT.PN ---
Subjective Subjective Remarks Resting comfortably with pain controlled Objective Vitals Vital Signs Date Time Temp Pulse Resp B/P (MAP) Pulse Ox O2 Delivery O2 Flow Rate FiO2 09/26/17 00:39 98.0 77 18 122/69 (86) 99 09/25/17 19:15 98.4 81 18 124/89 (101) 99 09/25/17 16:00 97.7 85 18 137/77 (97) 100 09/25/17 11:25 97.5 82 16 177/90 (119) 98 09/25/17 07:30 97.4 81 18 146/94 (111) 100 I/O 09/25/17 09/25/17 09/25/17 09/26/17 09/26/17 09/26/17 07:00 15:00 23:00 07:00 15:00 23:00 Intake Total 480 ml 960 ml 480 ml 480 ml Balance 480 ml 960 ml 480 ml 480 ml Intake Oral 480 ml 960 ml 480 ml 480 ml # Voids 1 3 3 3 # Bowel Movements 0 2 2 0 Result Diagram: 09/24/17 0507 09/23/17 1205 Imaging Last 24 hours Impressions Lower Extremity CT 09/23/17 0000 Signed Impressions: Service Date/Time: Saturday, September 23, 2017 09:01 - CONCLUSION: Proximal tibial fracture. Moderate osteoarthritis. Gaurang Roman MD Knee X-Ray 09/22/17 1120 Signed Impressions: Service Date/Time: Friday, September 22, 2017 11:43 - CONCLUSION: 1. Comminuted depressed fracture lateral tibial plateau 2. Lateral displacement of the patella. 3. Large joint effusion 4. Significant 3 compartment arthropathy. Nitin Jackson MD Ankle X-Ray 09/22/17 1120 Signed Impressions: Service Date/Time: Friday, September 22, 2017 11:41 - CONCLUSION: Sliver of avulsion fracture of the distal tip of the fibula with associated soft tissue swelling. Otherwise intact ankle. Nitin Jackson MD Objective Remarks Bilateral upper extremities full range of motion and neurovascularly intact with no pain Right lower extremity: No pain with hip or knee range of motion. Both lateral and medial ankle pain. Ankle is stable. Intact sensation throughout the foot Left lower extremity: No significant pain with range of motion of hip. Clean dry dressings with knee immobilizer in place. Distally intact sensation with good capillary refills of active dorsiflexion plantar flexion of foot Assessment & Plan Assessment and Plan Left tibia plateau fracture ORIF POD 3 Strict nonweightbearing left lower extremity with no active leglifts or quad sets PT passive range of motion from 0-90 Daily dressing changes Right distal fibula avulsion fracture Weightbearing as tolerated right lower extremity in fracture boot Incentive spirometry Lovenox Patient is refusing to go to rehabilitation. DME's are ordered. We will plan for discharge to home once DME's acquired which include hospital bed, bedside commode, wheelchair with elevated leg rest and a walker. She understands that if she does bear any weight on this leg even for balance 1 time she will depress the tibia plateau fracture and will have a poor outcome. She still insists that she has enough help to be at home to protect this leg. Case management for PT and dressing changes Follow-up appointment with Dr. Herndon or [facility] in 2 weeks Jeffy Pearce Jr. Sep 26, 2017 06:37
--- NOTE | 2017-09-26 06:39 | HHI.FF ---
Face to Face Verification Diagnosis: (1) Tibial plateau fracture, left (2) Closed fracture of right distal fibula Physical Therapy Gait training, Safety evaluation Canvas Knee Splint: Remove only with PT Right LE Weight Bearing: WB as tolerated (in fracture boot) Left LE Weight Bearing: Non WB, No Strengthening, No Quad Sets Left LE Range of Motion: Passive ROM (from 0-90) Nursing Dressing Changes: Daily dressing change, Xeroform, Coverderm/Primapore I have seen patient Nora Kilgore on 09/26/17. My clinical findings support the need for the requested home health care services because: Limited ability to care for self I certify that my clinical findings support that this patient is homebound because: Post-op weakness Jeffy Pearce Jr. Sep 26, 2017 06:39
[2017-09-26 08:00] VITALS: BP 133/99; PULSE 71; RESP 17; TEMP 97.5; O2SAT 99
[2017-09-26] MEDS: PANTOPRAZOLE SOD 40 MG DELAYED RELEASE TAB PO SCH (08:13)
[2017-09-26] MEDS: TOPIRAMATE 25 MG TAB PO SCH (08:13)
[2017-09-26] MEDS: LOSARTAN 25 MG TAB PO SCH (08:13)
[2017-09-26] MEDS: CHOLECALCIFEROL (VIT D3) 1000 UNIT TAB PO SCH (08:13)
[2017-09-26] MEDS: SODIUM CHLORIDE 0.9% FLUSH 10 ML FLUSH IV FLUSH SCH (08:13)
[2017-09-26] MEDS: CALCIUM/VITAMIN D 250 MG/125 U TAB PO SCH ×2 (08:13→11:57)
[2017-09-26] MEDS: DOCUSATE SODIUM 50 MG/SENNA 8.6 MG TAB PO SCH (08:17)
[2017-09-26] MEDS: LACTATED RINGER'S 1000 ML INJ 1,000 ML IV SCH (09:29)
--- NOTE | 2017-09-26 11:15 | HHI.PR ---
Subjective Remarks Follow up for left tibial plateau fracture, right fibula fracture, hypertension , constipation. Patient seen and examined, lying in bed comfortably. No apparent distress. Spoke to patient at length regarding outpatient rehab versus home, patient is agreeable to rehab. client delivery manager is assisting with arrangements. Patient is doing well, eating well, denies any nausea or vomiting. Patient denies any other medical complaints. Pain is controlled Objective Vitals Vital Signs Date Time Temp Pulse Resp B/P (MAP) Pulse Ox O2 Delivery O2 Flow Rate FiO2 09/26/17 08:00 97.5 71 17 133/99 (110) 99 09/26/17 00:39 98.0 77 18 122/69 (86) 99 09/25/17 19:15 98.4 81 18 124/89 (101) 99 09/25/17 16:00 97.7 85 18 137/77 (97) 100 09/25/17 11:25 97.5 82 16 177/90 (119) 98 I/O 09/25/17 09/25/17 09/25/17 09/26/17 09/26/17 09/26/17 07:00 15:00 23:00 07:00 15:00 23:00 Intake Total 480 ml 960 ml 480 ml 480 ml Balance 480 ml 960 ml 480 ml 480 ml Intake Oral 480 ml 960 ml 480 ml 480 ml # Voids 1 3 3 3 # Bowel Movements 0 2 2 0 Result Diagram: 09/24/17 0507 09/23/17 1205 Imaging Last Impressions Lower Extremity CT 09/23/17 0000 Signed Impressions: Service Date/Time: Saturday, September 23, 2017 09:01 - CONCLUSION: Proximal tibial fracture. Moderate osteoarthritis. Gaurang Roman MD Knee X-Ray 09/23/17 0000 Signed Impressions: Service Date/Time: Saturday, September 23, 2017 18:46 - CONCLUSION: Expected radiographic appearance after screw and plate fixation of lateral tibial plateau fracture. Kendrick Fountain MD Ankle X-Ray 09/22/17 1120 Signed Impressions: Service Date/Time: Friday, September 22, 2017 11:41 - CONCLUSION: Sliver of avulsion fracture of the distal tip of the fibula with associated soft tissue swelling. Otherwise intact ankle. Nitin Jackson MD Chest X-Ray 09/22/17 0000 Signed Impressions: Service Date/Time: Friday, September 22, 2017 12:49 - CONCLUSION: 1. Left basilar rounded opacity which may represent a hiatal hernia. 2. Lungs are otherwise clear. 3. Old left-sided rib fractures. Nitin Jackson MD Objective Remarks GENERAL: Well-nourished, well-developed middle aged female patient in NAD. SKIN: Warm and dry. No rash. HEENT: Normocephalic. Atraumatic. Pupils equal and round. Mucous membranes pink and moist. CARDIOVASCULAR: Regular rate and rhythm. S1, S2 noted. No murmur appreciated. RESPIRATORY: No accessory muscle use. Clear to auscultation. Breath sounds equal bilaterally. GASTROINTESTINAL: Abdomen soft, non-tender, nondistended. Normoactive bowel sounds x4. MUSCULOSKELETAL: No obvious deformities. LLE with knee immobilizer in place. Right ankle edematous. Bilateral pedal pulses 2+. NEUROLOGICAL: Awake and alert. No obvious cranial nerve deficits. Motor grossly within normal limits. Moving all extremities spontaneously. Normal speech. PSYCHIATRIC: Appropriate mood and affect; insight and judgment normal. Procedures 09/23/17 - Left tibial plateau fracture ORIF A/P Problem List: (1) Diet-controlled diabetes mellitus ICD Code: E11.9 - Type 2 diabetes mellitus without complications Status: Chronic (2) Tobacco abuse ICD Code: Z72.0 - Tobacco use (3) Tibial plateau fracture, left ICD Code: S82.142A - Displaced bicondylar fracture of left tibia, initial encounter for closed fracture Status: Acute (4) Hypertension ICD Code: I10 - Essential (primary) hypertension Status: Chronic Assessment and Plan 52-year-old female with hx of HTN admitted for L tibial plateau fracture and R fibula avulsion fracture after a mechanical fall. Left tibial plateau fracture with lateral displacement of the patella -Orthopedic surgery consulted, s/p ORIF on 09/23 -Strict NWB with no active leglifts or quad sets per ortho -Pain control -Consulted PT, recommends rehab Right fibula avulsion fracture -Right lower extremity fracture boot ordered, WBAT per ortho -Pain control Hypertension -BPs elevated but may be secondary to pain -Continue home Losartan and amlodipine -Clonidine PRN -BP much improved and controlled. Diet-controlled DM - Monitor blood sugars - patient adamantly states she's never had diabetes; hemoglobin A1c 5.9. Constipation, resolved. -Continue prasad-colace to 2 tabs po bid -constipation protocol meds prn -s/p MOM and lactulose, had BM today 09/26 DVT prophylaxis- Lovenox per ortho DC planning to rehabilitation. Unsafe to go home Follow-up appointment with Dr. Herndon or [place] in 2 weeks Discharge Planning Okay to discharge to rehab when arrangements made by case management. Problem Qualifiers (1) Tibial plateau fracture, left: Qualified Codes: S82.142A - Displaced bicondylar fracture of left tibia, initial encounter for closed fracture Lindsey Tavarez Sep 26, 2017 11:15
[2017-09-26 11:51] VITALS: BP 129/83; PULSE 68; RESP 18; TEMP 97.3; O2SAT 100
[2017-09-26 16:07] VITALS: BP 138/99; PULSE 71; RESP 18; TEMP 97.1; O2SAT 100
== END 2017-09-26 16:59 | DRG 489 ==
LOC: NEPD 11:09 → NEDA 13:08 → NEPGCP 23:13 → N06B 09-23 16:35
PROVIDERS: ADMIT Hospitalist; ATTEND Hospitalist
PROC: 0SQD0ZZ Repair Left Knee Joint, Open Approach (ICD-10-PCS; 2017-09-23)
PROC: 0QSH04Z Reposition Left Tibia with Internal Fixation Device, Open Approach (ICD-10-PCS; principal; 2017-09-23 17:15)
DX: S82.142A Displaced bicondylar fracture of left tibia, initial encounter for closed fracture (principal); I10 Essential (primary) hypertension; S83.252A Bucket-handle tear of lateral meniscus, current injury, left knee, initial encounter; E11.9 Type 2 diabetes mellitus without complications; S82.301A Unspecified fracture of lower end of right tibia, initial encounter for closed fracture; K59.00 Constipation, unspecified; F17.210 Nicotine dependence, cigarettes, uncomplicated; W10.1XXA Fall (on)(from) sidewalk curb, initial encounter; Y93.01 Activity, walking, marching and hiking
CPT/HCPCS: 71045; 73560; 73564; 73610; 73700; 76000; 80048; 80053; 82306; 82652; 82948; 83036; 85025; 85027; 85610; 85730; 93005; 96372; 96374; 96375; C1713; J0690; J1170; J1580; J1650; J1885; J2175; J2250; J2270; J2370; J2405; J3010; J3370; J7050; J7120; L1830; L2114